=== PATIENT | male | born 1965 | race Caucasian/White ===

== ENCOUNTER 2023-04-24 20:00 | Inpatient (IN) | payer MEDICARE ==
[2023-04-24 20:33] LABS: #Monocytes 0.2 thou/uL (0.11-0.59); %Basophils 0.6 % (0.0-1.0); %Eosinophils 0.6 % (0.0-10.0); %Lymphocytes 10.8 % (21.0-51.0); %Monocytes 4.7 % (0.0-10.0); Hematocrit 35.6 % (42.0-52.0); Hemoglobin 12.2 g/dL (14.0-18.0); Mean Corpuscular HGB CONC 34.3 g/dL (32.0-36.0); Mean Corpuscular Hemoglobin 36.2 pg (27.0-31.0); Mean Corpuscular Volume 105.6 fl (78.0-98.0); Mean Platelet Volume 10.7 fL (7.4-10.4); Platelet Count 54 10x3/uL (130-400); RBC Distribution Width 15.3 % (11.5-14.5); Red Blood Cell (RBC) Count 3.37 mill/uL (4.70-6.10); White Blood Cell (WBC) Count 3.6 10x3/uL (4.8-10.8)
[2023-04-24 20:44] LABS: Bacteria/HPF None Seen HPF (None Seen); Bilirubin Negative (Negative); Blood, Urine Negative (Negative); CAUTI Indications for Culture Alt mental st,lethar; Clarity Clear (Clear); Glucose, Urine (Dipstick) Normal (Negative); Ketone, Urine 20 mg/dL (Negative); Leukocyte Negative Leu/uL (Negative); Nitrite Negative (Negative); Protein, Urine (Dipstick) Negative (Neg-Trace); RBC/HPF 0-3 HPF (0-3); Specific Gravity, Urine 1.015 (1.002-1.036); Squamous Epithelial None Seen HPF (0-3); Urobilinogen Greater than 12 mg/dL (Less than 2); WBC/HPF 0-3 HPF (0-3); pH, Urine 7.5 (5.0-9.0)
[2023-04-24 20:46] LABS: INR-International Normal Ratio 1.4; PTT 33.7 sec (22.9-36.1); Prothrombin Time 18.1 sec (12.0-14.7)
[2023-04-24 20:46] LABS: Urine Culture Reflex No No
[2023-04-24 20:58] LABS: ALT (SGPT) 34 U/L (8-55); AST (SGOT) 49 U/L (5-34); Albumin 3.1 g/dL (3.5-5.0); Alkaline Phosphatase 197 U/L (40-110); Anion Gap 15 mmol/L (10-20); BUN (Urea Nitrogen) 15 mg/dL (8.4-25.7); Bilirubin, Total 5.8 mg/dL (0.2-1.2); Calc. Creatinine Clearance 0 mL/min (70-130); Carbon Dioxide 17 mmol/L (22-29); Chloride 111 mmol/L (98-107); Estimated GFR 106; Globulin 3.4 g/dL (2.4-3.5); Glucose 115 mg/dL (70-105); Lipase 26 U/L (8-78); Potassium 4.2 mmol/L (3.5-5.1); Protein, Total 6.5 g/dL (6.0-8.3); Sodium 139 mmol/L (136-145)
[2023-04-24] MEDS ORDERED: Lactulose 10 GM/15 ML Oral Solution PR SCH (23:00)
[2023-04-25] MEDS: cefTRIAXone\\ROCEPHIN 1 GM in Sodium Chloride 0.9% 100 ML IVPB SCH ×2 (00:40→21:47)
[2023-04-25 05:00] LABS: #Monocytes 0.3 thou/uL (0.11-0.59); #Neutrophils 4.7 thou/uL (1.40-6.50); %Basophils 0.6 % (0.0-1.0); %Eosinophils 0.2 % (0.0-10.0); %Lymphocytes 6.8 % (21.0-51.0); %Monocytes 4.8 % (0.0-10.0); %Neutrophils 87.4 % (42.0-75.0); Hematocrit 34.3 % (42.0-52.0); Hemoglobin 11.6 g/dL (14.0-18.0); Mean Corpuscular HGB CONC 33.8 g/dL (32.0-36.0); Mean Corpuscular Hemoglobin 35.5 pg (27.0-31.0); Mean Corpuscular Volume 104.9 fl (78.0-98.0); Mean Platelet Volume 10.9 fL (7.4-10.4); RBC Distribution Width 15.2 % (11.5-14.5); Red Blood Cell (RBC) Count 3.27 mill/uL (4.70-6.10); White Blood Cell (WBC) Count 5.4 10x3/uL (4.8-10.8)
[2023-04-25 05:09] LABS: Platelet Count 53 10x3/uL (130-400)
[2023-04-25 05:28] LABS: Anion Gap 17 mmol/L (10-20); BUN (Urea Nitrogen) 17 mg/dL (8.4-25.7); Calc. Creatinine Clearance 105 mL/min (70-130); Calcium 7.8 mg/dL (7.8-10.44); Carbon Dioxide 17 mmol/L (22-29); Chloride 110 mmol/L (98-107); Estimated GFR 105; Glucose 154 mg/dL (70-105); Potassium 4.6 mmol/L (3.5-5.1); Sodium 139 mmol/L (136-145)
[2023-04-25] MEDS: Furosemide 40 MG/4 ML VIAL SLOW IVP SCH ×2 (06:17→14:26)
[2023-04-25] MEDS ORDERED: FLU VACC QS2023-24(6MOS UP)/PF 60 MCG/0.5 ML SYRINGE IM ONE (09:00)
[2023-04-25] MEDS ORDERED: Lidocaine 1% PF 5 ML VIAL ONE (16:00)
[2023-04-25] MEDS ORDERED: Sodium Bicarbonate 2.5 MEQ/5 ML VIAL ONE (16:00)
[2023-04-25] MEDS ORDERED: Lidocaine 1% w/Epinephrine 1:100K 20 ML VIAL ONE (16:36)
[2023-04-25] MEDS: Albumin 25% 25 GM/100 ML BOT IVPB SCH (18:30)
[2023-04-25 19:21] LABS: RBC Count-Automated (BF) 23 /cu.mm; WBC/Nucleated-Auto (BF) 12 /cu.mm
[2023-04-25 19:22] LABS: BF Color Yellow; Body Fluid Source Ascites Body Fluid; Clarity Clear (Clear); Tube # EDTA
[2023-04-25 19:29] LABS: Cell Count Non Hematic 81 %; Lymphocytes 19 %
[2023-04-26 00:40] LABS: #Monocytes 0.6 thou/uL (0.11-0.59); #Neutrophils 6.9 thou/uL (1.40-6.50); %Basophils 0.3 % (0.0-1.0); %Lymphocytes 4.5 % (21.0-51.0); %Monocytes 7.2 % (0.0-10.0); %Neutrophils 87.7 % (42.0-75.0); Hematocrit 35.3 % (42.0-52.0); Hemoglobin 11.9 g/dL (14.0-18.0); Mean Corpuscular HGB CONC 33.7 g/dL (32.0-36.0); Mean Corpuscular Hemoglobin 36.3 pg (27.0-31.0); Mean Corpuscular Volume 107.6 fl (78.0-98.0); RBC Distribution Width 15.8 % (11.5-14.5); Red Blood Cell (RBC) Count 3.28 mill/uL (4.70-6.10); White Blood Cell (WBC) Count 7.8 10x3/uL (4.8-10.8)
[2023-04-26 00:42] LABS: Platelet Count 50 10x3/uL (130-400)
[2023-04-26] MEDS ORDERED: Octreotide Acetate 100 MCG/ML VIAL SLOW IVP SCH (00:45)
[2023-04-26] MEDS: Ondansetron PF 4 MG/2 ML Vial IVP PRN (01:13)
[2023-04-26] MEDS: Albumin 25% 25 GM/100 ML BOT IVPB SCH ×3 (01:21→16:06)
[2023-04-26 04:44] LABS: #Monocytes 0.4 thou/uL (0.11-0.59); %Basophils 0.3 % (0.0-1.0); %Eosinophils 0.5 % (0.0-10.0); %Lymphocytes 5.1 % (21.0-51.0); %Monocytes 7.7 % (0.0-10.0); %Neutrophils 86.2 % (42.0-75.0); Hematocrit 32.6 % (42.0-52.0); Hemoglobin 11.1 g/dL (14.0-18.0); Mean Corpuscular Hemoglobin 35.8 pg (27.0-31.0); Mean Corpuscular Volume 105.2 fl (78.0-98.0); Mean Platelet Volume 10.5 fL (7.4-10.4); RBC Distribution Width 15.4 % (11.5-14.5); White Blood Cell (WBC) Count 5.7 10x3/uL (4.8-10.8)
[2023-04-26 05:13] LABS: Anion Gap 17 mmol/L (10-20); BUN (Urea Nitrogen) 19 mg/dL (8.4-25.7); Calc. Creatinine Clearance 92 mL/min (70-130); Calcium 8.4 mg/dL (7.8-10.44); Carbon Dioxide 18 mmol/L (22-29); Chloride 108 mmol/L (98-107); Estimated GFR 101; Glucose 139 mg/dL (70-105); Iron 114 ug/dL (65-175); Iron Binding Capacity, Total 258 mcg/dL (261-462); Potassium 3.3 mmol/L (3.5-5.1); Sodium 140 mmol/L (136-145)
[2023-04-26 05:33] LABS: Platelet Count 52 10x3/uL (130-400)
[2023-04-26 05:37] LABS: HBCM Index 0.12 S/CO (0-0.79); HBSAg Index 0.38 S/CO (0-0.99); Hep A IgM AB Non-Reactive S/CO (NonReactive); Hep B Surf Ag Non-Reactive S/CO (NonReactive); Hep C IgG Ab Non-Reactive S/CO (NonReactive); Hep C Index 0.15 S/CO (0-0.79); Hepatitis B Core IgM Abs Non-Reactive S/CO (NonReactive)
[2023-04-26] MEDS: Furosemide 40 MG/4 ML VIAL SLOW IVP SCH (06:03)
[2023-04-26] MEDS: Pantoprazole 40 MG VIAL IVP SCH ×2 (08:44→20:12)
[2023-04-26] MEDS ORDERED: Potassium Chloride 10 MEQ in Premix 1 BAG IVPB SCH (10:00)
[2023-04-26 13:01] LABS: Lactic Acid 2.5 mmol/L (0.5-2.2)
[2023-04-26 14:05] LABS: ANA Symphony (Qualitative) Negative (Negative); ANA Symphony (Quantitative) 0.4 Ratio (< 0.7 Negative); EliA Vaculitis New Method **** NEW METHOD ****; Mitochondrial Ab 2.1 U/mL (<4 Negative)
[2023-04-26] MEDS: Acetaminophen 650 MG/20.3 ML UDCUP PO PRN (23:02)
[2023-04-26] MEDS: cefTRIAXone\\ROCEPHIN 1 GM in Sodium Chloride 0.9% 100 ML IVPB SCH (23:03)
[2023-04-27] MEDS: Ondansetron ODT 4 MG TAB PO PRN ×2 (04:53→20:46)
[2023-04-27 05:03] LABS: #Eosinphils 0.4 thou/uL (0.0-0.7); #Monocytes 0.4 thou/uL (0.11-0.59); #Neutrophils 2.7 thou/uL (1.40-6.50); %Basophils 0.5 % (0.0-1.0); %Eosinophils 8.6 % (0.0-10.0); %Lymphocytes 14.7 % (21.0-51.0); %Monocytes 10.5 % (0.0-10.0); %Neutrophils 65.2 % (42.0-75.0); Hematocrit 31.7 % (42.0-52.0); Hemoglobin 10.2 g/dL (14.0-18.0); Mean Corpuscular HGB CONC 32.2 g/dL (32.0-36.0); Mean Platelet Volume 11.6 fL (7.4-10.4); RBC Distribution Width 15.5 % (11.5-14.5); Red Blood Cell (RBC) Count 2.83 mill/uL (4.70-6.10); White Blood Cell (WBC) Count 4.1 10x3/uL (4.8-10.8)
[2023-04-27 05:11] LABS: Anion Gap 14 mmol/L (10-20); BUN (Urea Nitrogen) 19 mg/dL (8.4-25.7); Calc. Creatinine Clearance 109 mL/min (70-130); Calcium 8.1 mg/dL (7.8-10.44); Carbon Dioxide 21 mmol/L (22-29); Chloride 109 mmol/L (98-107); Estimated GFR 106; Glucose 86 mg/dL (70-105); Potassium 3.6 mmol/L (3.5-5.1); Sodium 140 mmol/L (136-145)
[2023-04-27 05:18] LABS: Platelet Count 41 10x3/uL (130-400)
[2023-04-27 05:45] LABS: Anisocytosis SLIGHT = 6-15 cells HPF (0-5); CellaVision Operator ID lab.abc; Large Platelets 0.9 % (0-5); Macrocytosis SLIGHT = 6-15 cells HPF (0-5); Platelet Adequacy Comment Platelets Decreased; Polychromasia SLIGHT = 2-3 cells HPF (0-2); Smudge Cells 4.7 %
[2023-04-27] MEDS: Spironolactone 100 MG TAB PO SCH (08:46)
[2023-04-27] MEDS: Pantoprazole 40 MG VIAL IVP SCH ×2 (08:47→20:23)
[2023-04-27] MEDS ORDERED: Furosemide 40 MG/4 ML VIAL SLOW IVP SCH (09:00)
[2023-04-27] MEDS ORDERED: Furosemide 40 MG TAB PO SCH (09:00)
[2023-04-27] MEDS: Acetaminophen 650 MG/20.3 ML UDCUP PO PRN (11:07)
[2023-04-27] MEDS: Ondansetron PF 4 MG/2 ML Vial IVP PRN (12:46)
[2023-04-27] MEDS: cefTRIAXone\\ROCEPHIN 1 GM in Sodium Chloride 0.9% 100 ML IVPB SCH (23:13)
[2023-04-28] MEDS: Acetaminophen 650 MG/20.3 ML UDCUP PO PRN (00:32)
[2023-04-28 05:38] LABS: #Eosinphils 0.1 thou/uL (0.0-0.7); #Monocytes 0.6 thou/uL (0.11-0.59); #Neutrophils 4.4 thou/uL (1.40-6.50); %Basophils 0.7 % (0.0-1.0); %Eosinophils 1.1 % (0.0-10.0); %Lymphocytes 10.9 % (21.0-51.0); %Monocytes 10.2 % (0.0-10.0); %Neutrophils 76.7 % (42.0-75.0); Hematocrit 33.8 % (42.0-52.0); Hemoglobin 11.4 g/dL (14.0-18.0); Mean Corpuscular HGB CONC 33.7 g/dL (32.0-36.0); Mean Corpuscular Hemoglobin 36.1 pg (27.0-31.0); Mean Platelet Volume 11.6 fL (7.4-10.4); RBC Distribution Width 15.1 % (11.5-14.5); Red Blood Cell (RBC) Count 3.16 mill/uL (4.70-6.10); White Blood Cell (WBC) Count 5.7 10x3/uL (4.8-10.8)
[2023-04-28 06:08] LABS: Anion Gap 14 mmol/L (10-20); BUN (Urea Nitrogen) 19 mg/dL (8.4-25.7); Calc. Creatinine Clearance 101 mL/min (70-130); Calcium 8.2 mg/dL (7.8-10.44); Carbon Dioxide 25 mmol/L (22-29); Chloride 102 mmol/L (98-107); Estimated GFR 104; Glucose 122 mg/dL (70-105); Potassium 3.1 mmol/L (3.5-5.1); Sodium 138 mmol/L (136-145)
[2023-04-28 06:39] LABS: Platelet Count 46 10x3/uL (130-400)
[2023-04-28] MEDS: Pantoprazole 40 MG VIAL IVP SCH ×2 (08:35→20:49)
[2023-04-28] MEDS ORDERED: Potassium Chloride 20 MEQ TAB PO SCH (09:15)
[2023-04-28] MEDS ORDERED: PROPOFOL 20 ML ONE (10:36)
[2023-04-28] MEDS ORDERED: Lidocaine 2% PF 5 ML VIAL ONE (10:38)
[2023-04-28] MEDS ORDERED: PROPOFOL 0 ML ONE (10:40)
[2023-04-28] MEDS ORDERED: Lidocaine 1% PF 5 ML VIAL ONE (10:50)
[2023-04-28] MEDS ORDERED: Ondansetron HCl/PF 4 MG/2 ML Vial IVP PRN (11:12)
[2023-04-28] MEDS ORDERED: Promethazine HCl 25 MG/ML VIAL IM PRN (11:12)
[2023-04-28] MEDS: Spironolactone 100 MG TAB PO SCH (13:42)
[2023-04-28] MEDS: Furosemide 40 MG TAB PO SCH (13:43)
[2023-04-28] MEDS ORDERED: Apixaban 5 MG TAB PO SCH (21:00)
[2023-04-28] MEDS: Nadolol 40 MG TAB PO SCH (21:13)
[2023-04-28] MEDS: cefTRIAXone\\ROCEPHIN 1 GM in Sodium Chloride 0.9% 100 ML IVPB SCH (22:30)
[2023-04-29 05:03] LABS: #Eosinphils 0.2 thou/uL (0.0-0.7); #Monocytes 0.5 thou/uL (0.11-0.59); %Basophils 0.5 % (0.0-1.0); %Eosinophils 4.1 % (0.0-10.0); %Lymphocytes 14.7 % (21.0-51.0); %Monocytes 9.1 % (0.0-10.0); %Neutrophils 71.1 % (42.0-75.0); Hematocrit 33.6 % (42.0-52.0); Hemoglobin 11.7 g/dL (14.0-18.0); Mean Corpuscular HGB CONC 34.8 g/dL (32.0-36.0); Mean Corpuscular Hemoglobin 36.6 pg (27.0-31.0); Mean Platelet Volume 11.1 fL (7.4-10.4); RBC Distribution Width 14.6 % (11.5-14.5); White Blood Cell (WBC) Count 5.6 10x3/uL (4.8-10.8)
[2023-04-29 05:12] LABS: Platelet Count 68 10x3/uL (130-400)
[2023-04-29 06:15] LABS: Anion Gap 12 mmol/L (10-20); BUN (Urea Nitrogen) 12 mg/dL (8.4-25.7); Calc. Creatinine Clearance 91 mL/min (70-130); Calcium 8.1 mg/dL (7.8-10.44); Carbon Dioxide 26 mmol/L (22-29); Chloride 102 mmol/L (98-107); Estimated GFR 107; Glucose 109 mg/dL (70-105); Potassium 3.5 mmol/L (3.5-5.1); Sodium 136 mmol/L (136-145)
[2023-04-29] MEDS: Pantoprazole 40 MG VIAL IVP SCH ×2 (09:51→20:02)
[2023-04-29] MEDS: Spironolactone 100 MG TAB PO SCH (09:51)
[2023-04-29] MEDS: Furosemide 40 MG TAB PO SCH (09:51)
[2023-04-29] MEDS ORDERED: Sodium Bicarbonate 2.5 MEQ/5 ML VIAL ONE (10:04)
[2023-04-29] MEDS ORDERED: Lidocaine 1% PF 5 ML VIAL ONE (10:04)
[2023-04-29] MEDS: Albumin 25% 25 GM/100 ML BOT IVPB SCH ×3 (13:27→23:24)
[2023-04-29] MEDS: Nadolol 40 MG TAB PO SCH (20:02)
[2023-04-29] MEDS: cefTRIAXone\\ROCEPHIN 1 GM in Sodium Chloride 0.9% 100 ML IVPB SCH (23:24)
[2023-04-30 04:43] LABS: #Basophils 0.1 thou/uL (0.0-0.2); #Eosinphils 0.4 thou/uL (0.0-0.7); #Monocytes 0.6 thou/uL (0.11-0.59); #Neutrophils 4.3 thou/uL (1.40-6.50); %Basophils 0.8 % (0.0-1.0); %Eosinophils 5.7 % (0.0-10.0); %Lymphocytes 12.8 % (21.0-51.0); %Monocytes 9.8 % (0.0-10.0); %Neutrophils 70.4 % (42.0-75.0); Mean Corpuscular HGB CONC 34.4 g/dL (32.0-36.0); Mean Corpuscular Hemoglobin 35.9 pg (27.0-31.0); Mean Corpuscular Volume 104.6 fl (78.0-98.0); Mean Platelet Volume 11.3 fL (7.4-10.4); RBC Distribution Width 14.7 % (11.5-14.5); Red Blood Cell (RBC) Count 3.06 mill/uL (4.70-6.10); White Blood Cell (WBC) Count 6.1 10x3/uL (4.8-10.8)
[2023-04-30 05:02] LABS: Anion Gap 14 mmol/L (10-20); BUN (Urea Nitrogen) 13 mg/dL (8.4-25.7); Calc. Creatinine Clearance 81 mL/min (70-130); Calcium 8.4 mg/dL (7.8-10.44); Carbon Dioxide 24 mmol/L (22-29); Chloride 102 mmol/L (98-107); Estimated GFR 104; Glucose 88 mg/dL (70-105); Potassium 3.1 mmol/L (3.5-5.1); Sodium 137 mmol/L (136-145)
[2023-04-30 05:45] LABS: Platelet Count 64 10x3/uL (130-400)
[2023-04-30] MEDS: Albumin 25% 25 GM/100 ML BOT IVPB SCH (06:00)
[2023-04-30] MEDS: Furosemide 40 MG TAB PO SCH (08:58)
[2023-04-30] MEDS: Spironolactone 100 MG TAB PO SCH (08:59)
[2023-04-30] MEDS ORDERED: Potassium Chloride 20 MEQ TAB PO SCH (09:00)
[2023-04-30 16:21] VITALS: BMI 17.4
[2023-04-30] MEDS: Nadolol 40 MG TAB PO SCH (20:23)
[2023-04-30] MEDS: Rifaximin 200 MG TAB PO SCH (20:24)
[2023-04-30] MEDS: cefTRIAXone\\ROCEPHIN 1 GM in Sodium Chloride 0.9% 100 ML IVPB SCH (23:20)
[2023-05-01 05:06] LABS: #Basophils 0.1 thou/uL (0.0-0.2); #Eosinphils 0.3 thou/uL (0.0-0.7); #Monocytes 0.8 thou/uL (0.11-0.59); #Neutrophils 5.4 thou/uL (1.40-6.50); %Basophils 0.7 % (0.0-1.0); %Eosinophils 4.4 % (0.0-10.0); %Lymphocytes 9.9 % (21.0-51.0); %Monocytes 10.4 % (0.0-10.0); %Neutrophils 73.8 % (42.0-75.0); Hematocrit 33.3 % (42.0-52.0); Hemoglobin 11.5 g/dL (14.0-18.0); Mean Corpuscular HGB CONC 34.5 g/dL (32.0-36.0); Mean Corpuscular Hemoglobin 36.1 pg (27.0-31.0); Mean Corpuscular Volume 104.4 fl (78.0-98.0); Mean Platelet Volume 11.1 fL (7.4-10.4); RBC Distribution Width 14.7 % (11.5-14.5); Red Blood Cell (RBC) Count 3.19 mill/uL (4.70-6.10); White Blood Cell (WBC) Count 7.3 10x3/uL (4.8-10.8)
[2023-05-01 05:09] LABS: Platelet Count 65 10x3/uL (130-400)
[2023-05-01 05:24] LABS: Anion Gap 12 mmol/L (10-20); BUN (Urea Nitrogen) 13 mg/dL (8.4-25.7); Calc. Creatinine Clearance 78 mL/min (70-130); Calcium 8.6 mg/dL (7.8-10.44); Carbon Dioxide 26 mmol/L (22-29); Chloride 101 mmol/L (98-107); Estimated GFR 103; Glucose 100 mg/dL (70-105); Potassium 3.4 mmol/L (3.5-5.1); Sodium 136 mmol/L (136-145)
[2023-05-01] MEDS ORDERED: Potassium Bicarbonate/Cit Ac 20 MEQ TAB PO SCH (08:30)
[2023-05-01] MEDS: Furosemide 40 MG TAB PO SCH ×2 (08:47→14:57)
[2023-05-01] MEDS: Rifaximin 200 MG TAB PO SCH (08:47)
[2023-05-01] MEDS: Spironolactone 100 MG TAB PO SCH (08:47)
[2023-05-01 15:11] VITALS: BP 98/60; TEMP 98.5
== END 2023-05-01 17:20 | disposition home or self-care (01) | DRG 441 ==
LOC: EDBD 20:00 → ERS 20:00 → 2NO 21:49
PROVIDERS: ADMIT Student in an Organized Health Care Education/Training Program; ATTEND Hospitalist
PROC: 0W9G3ZZ Drainage of Peritoneal Cavity, Percutaneous Approach (ICD-10-PCS; 2023-04-25)
PROC: 30233J1 Transfusion of Nonautologous Serum Albumin into Peripheral Vein, Percutaneous Approach (ICD-10-PCS; 2023-04-25)
PROC: 06L38CZ Occlusion of Esophageal Vein with Extraluminal Device, Via Natural or Artificial Opening Endoscopic (ICD-10-PCS; 2023-04-28)
PROC: 0W9G3ZZ Drainage of Peritoneal Cavity, Percutaneous Approach (ICD-10-PCS; principal; 2023-04-29)
DX: K75.81 Nonalcoholic steatohepatitis (NASH) (principal); I85.11 Secondary esophageal varices with bleeding; C18.9 Malignant neoplasm of colon, unspecified; D68.9 Coagulation defect, unspecified; R18.8 Other ascites; K76.6 Portal hypertension; E87.20 Acidosis, unspecified; K50.90 Crohn's disease, unspecified, without complications; K76.82 Hepatic encephalopathy; I50.9 Heart failure, unspecified; K31.89 Other diseases of stomach and duodenum; D69.6 Thrombocytopenia, unspecified; Z79.899 Other long term (current) drug therapy; Z86.718 Personal history of other venous thrombosis and embolism; Z91.041 Radiographic dye allergy status; Z90.49 Acquired absence of other specified parts of digestive tract; Z98.890 Other specified postprocedural states
CPT/HCPCS: 36415; 49083; 51701; 70450; 71045; 74018; 74176; 76705; 80048; 80053; 80074; 81001; 82042; 82105; 82140; 82390; 82728; 83516; 83540; 83550; 83605; 83690; 84157; 85025; 85060; 85610; 85730; 86015; 86038; 86140; 86225; 87070; 87205; 88112; 88305; 89051; 93005; 93306; 94760; C9113; J0696; J1940; J2001; J2354; J2405; J2704; J3480; J3490; P9047; Q0162

== ENCOUNTER 2023-05-08 11:10 | Inpatient (IN) | payer MEDICARE ==
[2023-05-08 11:44] LABS: #Basophils 0.1 thou/uL (0.0-0.2); #Eosinphils 0.1 thou/uL (0.0-0.7); #Monocytes 0.8 thou/uL (0.11-0.59); %Basophils 0.5 % (0.0-1.0); %Eosinophils 0.8 % (0.0-10.0); %Lymphocytes 6.7 % (21.0-51.0); %Monocytes 6.5 % (0.0-10.0); %Neutrophils 85.1 % (42.0-75.0); Hematocrit 42.3 % (42.0-52.0); Hemoglobin 14.9 g/dL (14.0-18.0); Mean Corpuscular HGB CONC 35.2 g/dL (32.0-36.0); Platelet Count 121 10x3/uL (130-400); RBC Distribution Width 14.8 % (11.5-14.5); Red Blood Cell (RBC) Count 4.03 mill/uL (4.70-6.10); White Blood Cell (WBC) Count 11.8 10x3/uL (4.8-10.8)
[2023-05-08 12:10] LABS: ALT (SGPT) 47 U/L (8-55); AST (SGOT) 59 U/L (5-34); Albumin 4.4 g/dL (3.5-5.0); Alkaline Phosphatase 185 U/L (40-110); Anion Gap 19 mmol/L (10-20); BUN (Urea Nitrogen) 25 mg/dL (8.4-25.7); Bilirubin, Total 5.2 mg/dL (0.2-1.2); Calc. Creatinine Clearance 0 mL/min (70-130); Calcium 10.2 mg/dL (7.8-10.44); Carbon Dioxide 23 mmol/L (22-29); Chloride 97 mmol/L (98-107); Estimated GFR 64; Glucose 136 mg/dL (70-105); Protein, Total 8.4 g/dL (6.0-8.3); Sodium 133 mmol/L (136-145)
[2023-05-08 12:14] LABS: Troponin I Less than 0.010 ng/mL (< 0.028)
[2023-05-08 12:16] LABS: Potassium 6.3 mmol/L (3.5-5.1)
[2023-05-08] MEDS ORDERED: Haloperidol Lactate 5 MG/ML VIAL ONE (12:28)
[2023-05-08] MEDS ORDERED: Furosemide 100 MG/10 ML VIAL ONE (12:46)
[2023-05-08] MEDS ORDERED: Calcium Chloride 1 GM/10 ML Abboject SYRINGE ONE (12:47)
[2023-05-08] MEDS ORDERED: Insulin Regular 300 UNITS/3 ML VIAL ONE (12:47)
[2023-05-08] MEDS ORDERED: Dextrose 10% in Water 250 ML IVPB SCH (13:15)
[2023-05-08 13:29] LABS: Bacteria/HPF None Seen HPF (None Seen); Bilirubin Negative (Negative); Blood, Urine Negative (Negative); CAUTI Indications for Culture Alt mental st,lethar; Clarity Clear (Clear); Glucose, Urine (Dipstick) Normal (Negative); Ketone, Urine Negative (Negative); Leukocyte Negative Leu/uL (Negative); Nitrite Negative (Negative); Protein, Urine (Dipstick) Negative (Neg-Trace); RBC/HPF 0-3 HPF (0-3); Specific Gravity, Urine 1.017 (1.002-1.036); Squamous Epithelial None Seen HPF (0-3); WBC/HPF 0-3 HPF (0-3)
[2023-05-08 13:31] LABS: Urine Culture Reflex No No
[2023-05-08] MEDS ORDERED: Senokot S 8.6-50 MG TAB PO PRN (14:23)
[2023-05-08] MEDS ORDERED: Acetaminophen 650 MG Suppository PR PRN (14:23)
[2023-05-08] MEDS ORDERED: Guaifenesin DM 100-10/5 ML UDCUP PO PRN (14:23)
[2023-05-08] MEDS ORDERED: Ondansetron ODT 4 MG TAB PO PRN (14:23)
[2023-05-08 14:43] LABS: Anion Gap 20 mmol/L (10-20); BUN (Urea Nitrogen) 26 mg/dL (8.4-25.7); Calc. Creatinine Clearance 0 mL/min (70-130); Calcium 11.7 mg/dL (7.8-10.44); Carbon Dioxide 20 mmol/L (22-29); Chloride 99 mmol/L (98-107); Estimated GFR 70; Glucose 171 mg/dL (70-105); Potassium 4.9 mmol/L (3.5-5.1); Sodium 134 mmol/L (136-145)
[2023-05-08] MEDS ORDERED: Furosemide 40 MG TAB PO SCH (14:45)
[2023-05-08] MEDS ORDERED: FLU VACC QS2023-24(6MOS UP)/PF 60 MCG/0.5 ML SYRINGE IM ONE (15:45)
[2023-05-08] MEDS ORDERED: Sodium Bicarbonate 2.5 MEQ/5 ML VIAL ONE (15:47)
[2023-05-08] MEDS ORDERED: Lidocaine 1% PF 5 ML VIAL ONE (15:48)
[2023-05-08] MEDS: cefTRIAXone\\ROCEPHIN 2 GM in Sodium Chloride 0.9% 100 ML IVPB SCH (16:53)
[2023-05-08] MEDS: Albumin 25% 25 GM/100 ML BOT IVPB SCH ×2 (18:47→23:01)
[2023-05-08] MEDS: Sodium Chloride 0.9% 1,000 ML IV SCH (18:47)
[2023-05-08] MEDS: Rifaximin 200 MG TAB PO SCH (20:33)
[2023-05-08] MEDS ORDERED: Nadolol 40 MG TAB PO SCH (21:00)
[2023-05-08] MEDS ORDERED: Ondansetron PF 4 MG/2 ML Vial IVP PRN (23:37)
[2023-05-09] MEDS: Ondansetron PF 4 MG/2 ML Vial IVP PRN (00:20)
[2023-05-09] MEDS: Albumin 25% 25 GM/100 ML BOT IVPB SCH ×2 (05:14→11:22)
[2023-05-09 06:33] LABS: #Monocytes 0.8 thou/uL (0.11-0.59); %Basophils 0.3 % (0.0-1.0); %Lymphocytes 3.6 % (21.0-51.0); %Monocytes 7.2 % (0.0-10.0); %Neutrophils 88.5 % (42.0-75.0); Hematocrit 36.6 % (42.0-52.0); Hemoglobin 12.6 g/dL (14.0-18.0); Mean Corpuscular HGB CONC 34.4 g/dL (32.0-36.0); Mean Corpuscular Volume 107.3 fl (78.0-98.0); Mean Platelet Volume 11.5 fL (7.4-10.4); RBC Distribution Width 14.8 % (11.5-14.5); Red Blood Cell (RBC) Count 3.41 mill/uL (4.70-6.10); White Blood Cell (WBC) Count 11.3 10x3/uL (4.8-10.8)
[2023-05-09 06:34] LABS: Platelet Count 54 10x3/uL (130-400)
[2023-05-09 06:55] LABS: Anion Gap 22 mmol/L (10-20); BUN (Urea Nitrogen) 33 mg/dL (8.4-25.7); Calc. Creatinine Clearance 43 mL/min (70-130); Calcium 10.8 mg/dL (7.8-10.44); Carbon Dioxide 17 mmol/L (22-29); Chloride 103 mmol/L (98-107); Estimated GFR 58; Glucose 150 mg/dL (70-105); Potassium 5.3 mmol/L (3.5-5.1); Sodium 137 mmol/L (136-145)
[2023-05-09] MEDS: Rifaximin 200 MG TAB PO SCH ×2 (08:11→21:53)
[2023-05-09] MEDS: Pantoprazole 40 MG VIAL IVP SCH (08:11)
[2023-05-09] MEDS ORDERED: Furosemide 40 MG TAB PO SCH (09:00)
[2023-05-09 13:03] VITALS: BMI 21.7
[2023-05-09] MEDS: cefTRIAXone\\ROCEPHIN 2 GM in Sodium Chloride 0.9% 100 ML IVPB SCH (16:12)
[2023-05-09] MEDS: Sodium Chloride 0.9% 1,000 ML IV SCH (16:13)
[2023-05-10] MEDS: Acetaminophen 325 MG TAB PO PRN ×2 (03:27→15:06)
[2023-05-10] MEDS: Sodium Chloride 0.9% 1,000 ML IV SCH (09:38)
[2023-05-10] MEDS: Rifaximin 200 MG TAB PO SCH ×2 (09:38→20:25)
[2023-05-10] MEDS: Pantoprazole 40 MG VIAL IVP SCH (09:38)
[2023-05-10] MEDS: cefTRIAXone\\ROCEPHIN 2 GM in Sodium Chloride 0.9% 100 ML IVPB SCH (15:06)
[2023-05-10 16:50] LABS: #Basophils 0.1 thou/uL (0.0-0.2); #Eosinphils 0.2 thou/uL (0.0-0.7); #Monocytes 0.8 thou/uL (0.11-0.59); #Neutrophils 6.1 thou/uL (1.40-6.50); %Basophils 0.7 % (0.0-1.0); %Lymphocytes 6.3 % (21.0-51.0); %Monocytes 10.4 % (0.0-10.0); %Neutrophils 78.9 % (42.0-75.0); Hematocrit 32.4 % (42.0-52.0); Hemoglobin 10.7 g/dL (14.0-18.0); Mean Corpuscular Hemoglobin 36.8 pg (27.0-31.0); Mean Corpuscular Volume 111.3 fl (78.0-98.0); Mean Platelet Volume 10.8 fL (7.4-10.4); RBC Distribution Width 15.2 % (11.5-14.5); Red Blood Cell (RBC) Count 2.91 mill/uL (4.70-6.10); White Blood Cell (WBC) Count 7.7 10x3/uL (4.8-10.8)
[2023-05-10 17:11] LABS: Anion Gap 15 mmol/L (10-20); BUN (Urea Nitrogen) 32 mg/dL (8.4-25.7); Calc. Creatinine Clearance 55 mL/min (70-130); Calcium 9.4 mg/dL (7.8-10.44); Carbon Dioxide 21 mmol/L (22-29); Chloride 107 mmol/L (98-107); Estimated GFR 79; Glucose 143 mg/dL (70-105); Sodium 139 mmol/L (136-145)
[2023-05-10 17:17] LABS: Platelet Count 44 10x3/uL (130-400)
[2023-05-10] MEDS ORDERED: Mineral Oil ENEMA PR SCH (17:30)
[2023-05-10 18:07] LABS: CellaVision Operator ID LAB.KB; Macrocytosis SLIGHT = 6-15 cells HPF (0-5); Ovalocytes SLIGHT = 2-5 cells HPF (0-1); Platelet Adequacy Comment Platelets Decreased
[2023-05-11 05:01] LABS: #Eosinphils 0.1 thou/uL (0.0-0.7); #Monocytes 0.6 thou/uL (0.11-0.59); #Neutrophils 4.1 thou/uL (1.40-6.50); %Basophils 0.7 % (0.0-1.0); %Eosinophils 1.3 % (0.0-10.0); %Lymphocytes 12.4 % (21.0-51.0); %Monocytes 10.8 % (0.0-10.0); %Neutrophils 74.4 % (42.0-75.0); Hematocrit 30.7 % (42.0-52.0); Hemoglobin 10.2 g/dL (14.0-18.0); Mean Corpuscular HGB CONC 33.2 g/dL (32.0-36.0); Mean Corpuscular Hemoglobin 36.2 pg (27.0-31.0); Mean Corpuscular Volume 108.9 fl (78.0-98.0); Mean Platelet Volume 10.7 fL (7.4-10.4); RBC Distribution Width 14.8 % (11.5-14.5); Red Blood Cell (RBC) Count 2.82 mill/uL (4.70-6.10); White Blood Cell (WBC) Count 5.5 10x3/uL (4.8-10.8)
[2023-05-11 05:05] LABS: Platelet Count 44 10x3/uL (130-400)
[2023-05-11 05:34] LABS: Anion Gap 10 mmol/L (10-20); BUN (Urea Nitrogen) 27 mg/dL (8.4-25.7); Calc. Creatinine Clearance 66 mL/min (70-130); Calcium 8.9 mg/dL (7.8-10.44); Carbon Dioxide 26 mmol/L (22-29); Chloride 108 mmol/L (98-107); Estimated GFR 98; Glucose 98 mg/dL (70-105); Sodium 140 mmol/L (136-145)
[2023-05-11] MEDS: Sodium Chloride 0.9% 1,000 ML IV SCH (09:17)
[2023-05-11] MEDS: Rifaximin 200 MG TAB PO SCH ×2 (09:18→21:35)
[2023-05-11] MEDS: Pantoprazole 40 MG VIAL IVP SCH (09:18)
[2023-05-11 09:22] LABS: INR-International Normal Ratio 1.7; Prothrombin Time 20.9 sec (12.0-14.7)
[2023-05-11] MEDS ORDERED: Fleet Saline Enema 133 ML BOT PR SCH (11:45)
[2023-05-11] MEDS: cefTRIAXone\\ROCEPHIN 2 GM in Sodium Chloride 0.9% 100 ML IVPB SCH (16:59)
[2023-05-12] MEDS: Sodium Chloride 0.9% 1,000 ML IV SCH (02:34)
[2023-05-12 05:18] LABS: #Eosinphils 0.1 thou/uL (0.0-0.7); #Monocytes 0.5 thou/uL (0.11-0.59); #Neutrophils 3.1 thou/uL (1.40-6.50); %Eosinophils 1.7 % (0.0-10.0); %Lymphocytes 11.7 % (21.0-51.0); %Monocytes 12.2 % (0.0-10.0); %Neutrophils 72.9 % (42.0-75.0); Hematocrit 31.5 % (42.0-52.0); Hemoglobin 10.5 g/dL (14.0-18.0); Mean Corpuscular HGB CONC 33.3 g/dL (32.0-36.0); Mean Corpuscular Hemoglobin 36.5 pg (27.0-31.0); Mean Corpuscular Volume 109.4 fl (78.0-98.0); Mean Platelet Volume 11.2 fL (7.4-10.4); RBC Distribution Width 14.7 % (11.5-14.5); Red Blood Cell (RBC) Count 2.88 mill/uL (4.70-6.10); White Blood Cell (WBC) Count 4.2 10x3/uL (4.8-10.8)
[2023-05-12 05:42] LABS: Anion Gap 13 mmol/L (10-20); BUN (Urea Nitrogen) 19 mg/dL (8.4-25.7); Calc. Creatinine Clearance 79 mL/min (70-130); Calcium 8.5 mg/dL (7.8-10.44); Carbon Dioxide 24 mmol/L (22-29); Chloride 105 mmol/L (98-107); Estimated GFR 105; Glucose 113 mg/dL (70-105); Potassium 4.1 mmol/L (3.5-5.1); Sodium 138 mmol/L (136-145)
[2023-05-12 05:46] LABS: Platelet Count 48 10x3/uL (130-400)
[2023-05-12] MEDS: Pantoprazole 40 MG VIAL IVP SCH (09:27)
[2023-05-12] MEDS: Rifaximin 200 MG TAB PO SCH ×2 (09:27→20:58)
[2023-05-12] MEDS: Acetaminophen 325 MG TAB PO PRN (13:22)
[2023-05-12] MEDS: cefTRIAXone\\ROCEPHIN 2 GM in Sodium Chloride 0.9% 100 ML IVPB SCH (17:56)
[2023-05-12] MEDS: Calcium Carbonate 500 MG ChewTAB PO PRN (21:42)
[2023-05-12] MEDS: Ondansetron PF 4 MG/2 ML Vial IVP PRN (21:42)
[2023-05-13 07:04] LABS: #Eosinphils 0.1 thou/uL (0.0-0.7); #Monocytes 0.6 thou/uL (0.11-0.59); #Neutrophils 4.1 thou/uL (1.40-6.50); %Basophils 0.7 % (0.0-1.0); %Eosinophils 0.9 % (0.0-10.0); %Lymphocytes 10.1 % (21.0-51.0); %Monocytes 11.9 % (0.0-10.0); Hematocrit 29.9 % (42.0-52.0); Hemoglobin 10.5 g/dL (14.0-18.0); Mean Corpuscular HGB CONC 35.1 g/dL (32.0-36.0); Mean Corpuscular Hemoglobin 37.2 pg (27.0-31.0); Mean Platelet Volume 10.6 fL (7.4-10.4); RBC Distribution Width 14.7 % (11.5-14.5); Red Blood Cell (RBC) Count 2.82 mill/uL (4.70-6.10); White Blood Cell (WBC) Count 5.4 10x3/uL (4.8-10.8)
[2023-05-13 07:09] LABS: Platelet Count 53 10x3/uL (130-400)
[2023-05-13 07:26] LABS: Anion Gap 10 mmol/L (10-20); BUN (Urea Nitrogen) 15 mg/dL (8.4-25.7); Calc. Creatinine Clearance 92 mL/min (70-130); Calcium 8.7 mg/dL (7.8-10.44); Carbon Dioxide 25 mmol/L (22-29); Chloride 102 mmol/L (98-107); Estimated GFR 110; Glucose 96 mg/dL (70-105); Potassium 4.1 mmol/L (3.5-5.1); Sodium 133 mmol/L (136-145)
[2023-05-13] MEDS: Pantoprazole 40 MG VIAL IVP SCH (09:02)
[2023-05-13] MEDS: Rifaximin 200 MG TAB PO SCH ×2 (09:02→20:30)
[2023-05-13] MEDS: Calcium Carbonate 500 MG ChewTAB PO PRN (20:28)
[2023-05-14] MEDS: Rifaximin 200 MG TAB PO SCH (09:01)
[2023-05-14] MEDS: Pantoprazole 40 MG VIAL IVP SCH (09:01)
[2023-05-14 11:59] VITALS: TEMP 98.1
[2023-05-14] MEDS ORDERED: Loratadine/Pseudoephedrine 10/240 mg Tablet PO SCH (15:30)
[2023-05-14] MEDS: Calcium Carbonate 500 MG ChewTAB PO PRN (17:31)
[2023-05-14 19:24] VITALS: BP 119/77
[2023-05-14] MEDS: Acetaminophen 325 MG TAB PO PRN (20:25)
== END 2023-05-14 20:33 | DRG 441 ==
LOC: ERS 11:10 → IMCU/EMU 14:52 → T4-A 05-12 20:20
PROVIDERS: ADMIT Emergency Medicine; ATTEND Family Medicine
PROC: 0W9G3ZZ Drainage of Peritoneal Cavity, Percutaneous Approach (ICD-10-PCS; principal; 2023-05-08)
PROC: 30233J1 Transfusion of Nonautologous Serum Albumin into Peripheral Vein, Percutaneous Approach (ICD-10-PCS; 2023-05-08)
DX: K76.82 Hepatic encephalopathy (principal); G93.41 Metabolic encephalopathy; K76.6 Portal hypertension; N17.9 Acute kidney failure, unspecified; R64 Cachexia; I50.9 Heart failure, unspecified; E87.5 Hyperkalemia; K70.31 Alcoholic cirrhosis of liver with ascites; D69.6 Thrombocytopenia, unspecified; K59.09 Other constipation; Z68.21 Body mass index [BMI] 21.0-21.9, adult; Z90.49 Acquired absence of other specified parts of digestive tract; Z86.718 Personal history of other venous thrombosis and embolism; Z79.899 Other long term (current) drug therapy; Z91.041 Radiographic dye allergy status
CPT/HCPCS: 36415; 36416; 49083; 51702; 70450; 71045; 74018; 74176; 74230; 80048; 81001; 82140; 84484; 85025; 85610; 87040; 87070; 87205; 93005; 96372; 96374; 96375; C9113; J0696; J1630; J1815; J1940; J2405; J3490; J7050; P9047

== ENCOUNTER 2023-05-17 23:16 | Observation (INO) | payer MEDICARE ==
[2023-05-18 00:18] LABS: #Monocytes 0.3 thou/uL (0.11-0.59); #Neutrophils 2.7 thou/uL (1.40-6.50); %Basophils 0.8 % (0.0-1.0); %Eosinophils 0.8 % (0.0-10.0); %Lymphocytes 16.5 % (21.0-51.0); %Monocytes 8.1 % (0.0-10.0); %Neutrophils 73.5 % (42.0-75.0); Hematocrit 31.8 % (42.0-52.0); Mean Corpuscular HGB CONC 34.6 g/dL (32.0-36.0); Mean Corpuscular Hemoglobin 37.2 pg (27.0-31.0); Mean Corpuscular Volume 107.4 fl (78.0-98.0); Mean Platelet Volume 10.9 fL (7.4-10.4); Platelet Count 44 10x3/uL (130-400); RBC Distribution Width 15.6 % (11.5-14.5); Red Blood Cell (RBC) Count 2.96 mill/uL (4.70-6.10); White Blood Cell (WBC) Count 3.7 10x3/uL (4.8-10.8)
[2023-05-18 00:38] LABS: ALT (SGPT) 43 U/L (8-55); AST (SGOT) 48 U/L (5-34); Albumin 3.6 g/dL (3.5-5.0); Alkaline Phosphatase 134 U/L (40-110); Anion Gap 14 mmol/L (10-20); BUN (Urea Nitrogen) 19 mg/dL (8.4-25.7); Calc. Creatinine Clearance 0 mL/min (70-130); Calcium 8.6 mg/dL (7.8-10.44); Carbon Dioxide 20 mmol/L (22-29); Chloride 108 mmol/L (98-107); Estimated GFR 108; Glucose 81 mg/dL (70-105); Lipase 26 U/L (8-78); Protein, Total 6.6 g/dL (6.0-8.3); Sodium 138 mmol/L (136-145)
[2023-05-18 00:39] LABS: Bacteria/HPF None Seen HPF (None Seen); Bilirubin 1+ (Negative); Blood, Urine 1+ (Negative); CAUTI Indications for Culture Alt mental st,lethar; Clarity Clear (Clear); Glucose, Urine (Dipstick) Normal (Negative); Ketone, Urine 40 mg/dL (Negative); Leukocyte Negative Leu/uL (Negative); Mucous/LPF 1+ LPF (<2+); Nitrite Negative (Negative); Protein, Urine (Dipstick) 20 mg/dL (Neg-Trace); Specific Gravity, Urine 1.032 (1.002-1.036); Squamous Epithelial None Seen HPF (0-3); WBC/HPF 0-3 HPF (0-3); pH, Urine 6.5 (5.0-9.0)
[2023-05-18 00:42] LABS: Troponin I Less than 0.010 ng/mL (< 0.028)
[2023-05-18 00:44] LABS: Urine Culture Reflex No No
[2023-05-18] MEDS ORDERED: Acetaminophen 325 MG TAB PO PRN (01:39)
[2023-05-18] MEDS ORDERED: Ondansetron PF 4 MG/2 ML Vial IVP PRN (01:39)
[2023-05-18] MEDS ORDERED: Acetaminophen 650 MG Suppository PR PRN (01:39)
[2023-05-18] MEDS ORDERED: Calcium Carbonate 500 MG ChewTAB PO PRN (01:39)
[2023-05-18] MEDS ORDERED: Ondansetron ODT 4 MG TAB PO PRN (01:39)
[2023-05-18 06:40] LABS: #Monocytes 0.2 thou/uL (0.11-0.59); %Basophils 1.1 % (0.0-1.0); %Lymphocytes 17.2 % (21.0-51.0); %Monocytes 7.1 % (0.0-10.0); %Neutrophils 74.2 % (42.0-75.0); Hematocrit 33.4 % (42.0-52.0); Mean Corpuscular HGB CONC 32.9 g/dL (32.0-36.0); Mean Corpuscular Hemoglobin 37.4 pg (27.0-31.0); RBC Distribution Width 15.9 % (11.5-14.5); Red Blood Cell (RBC) Count 2.94 mill/uL (4.70-6.10); White Blood Cell (WBC) Count 2.7 10x3/uL (4.8-10.8)
[2023-05-18 06:47] LABS: Mean Corpuscular Volume 113.6 fl (78.0-98.0)
[2023-05-18 06:48] LABS: Platelet Count 7 10x3/uL (130-400)
[2023-05-18 07:13] LABS: Anisocytosis SLIGHT = 6-15 cells HPF (0-5); Burr Cells SLIGHT = 2-5 cells HPF (0-1); CellaVision Operator ID LAB.NR; Macrocytosis MODERATE=16-30 cells HPF (0-5); Platelet Adequacy Comment Significant decrease; Polychromasia SLIGHT = 2-3 cells HPF (0-2); Target Cells SLIGHT = 2-5 cells HPF (0-1)
[2023-05-18] MEDS ORDERED: Promethazine HCl 12.5 MG in Sodium Chloride 0.9% 50 ML IVPB PRN (07:53)
[2023-05-18] MEDS ORDERED: Famotidine 20 MG TAB PO SCH (09:00)
[2023-05-18] MEDS ORDERED: Famotidine/PF 20 mg/2ml Vial SLOW IVP SCH (09:00)
[2023-05-18 09:31] LABS: #Monocytes 0.3 thou/uL (0.11-0.59); #Neutrophils 3.2 thou/uL (1.40-6.50); %Basophils 0.8 % (0.0-1.0); %Eosinophils 0.5 % (0.0-10.0); %Lymphocytes 11.8 % (21.0-51.0); %Monocytes 7.3 % (0.0-10.0); %Neutrophils 79.3 % (42.0-75.0); Hemoglobin 11.4 g/dL (14.0-18.0); Mean Corpuscular HGB CONC 34.5 g/dL (32.0-36.0); Mean Corpuscular Hemoglobin 37.5 pg (27.0-31.0); Mean Platelet Volume 11.1 fL (7.4-10.4); RBC Distribution Width 15.8 % (11.5-14.5); Red Blood Cell (RBC) Count 3.04 mill/uL (4.70-6.10)
[2023-05-18 09:59] LABS: Platelet Count 43 10x3/uL (130-400)
[2023-05-18 10:01] LABS: Mean Corpuscular Volume 108.6 fl (78.0-98.0)
[2023-05-18] MEDS: Rifaximin 200 MG TAB PO SCH ×2 (10:17→21:56)
[2023-05-18] MEDS: Lactulose 10 GM/15 ML Oral Solution PR SCH ×3 (10:18→18:33)
[2023-05-18 13:37] LABS: Albumin 3.9 g/dL (3.5-5.0); Calcium 8.8 mg/dL (7.8-10.44); Chloride 109 mmol/L (98-107); Sodium 140 mmol/L (136-145)
[2023-05-18 13:38] LABS: Globulin 3.1 g/dL (2.4-3.5); Glucose 109 mg/dL (70-105)
[2023-05-18 13:39] LABS: Carbon Dioxide 15 mmol/L (22-29)
[2023-05-18 13:40] LABS: Anion Gap 20 mmol/L (10-20); Bilirubin, Total 6.7 mg/dL (0.2-1.2)
[2023-05-18 13:41] LABS: Alkaline Phosphatase 165 U/L (40-110); Calc. Creatinine Clearance 87 mL/min (70-130); Estimated GFR 107
[2023-05-18 13:42] LABS: BUN (Urea Nitrogen) 22 mg/dL (8.4-25.7)
[2023-05-18 13:43] LABS: AST (SGOT) 63 U/L (5-34)
[2023-05-18 13:44] LABS: ALT (SGPT) 50 U/L (8-55)
[2023-05-19 04:05] VITALS: TEMP 97.6
[2023-05-19 04:08] VITALS: BMI 19.1
[2023-05-19 08:06] VITALS: BP 111/72
[2023-05-19] MEDS: Rifaximin 200 MG TAB PO SCH (09:05)
[2023-05-21] MEDS ORDERED: FLU VACC QS2023-24(6MOS UP)/PF 60 MCG/0.5 ML SYRINGE IM ONE (09:00)
== END 2023-05-19 13:05 ==
LOC: ERS 23:16 → T4-B 05-18 01:53
PROVIDERS: ADMIT Student in an Organized Health Care Education/Training Program; ATTEND Internal Medicine
DX: R41.82 Altered mental status, unspecified (principal); K74.60 Unspecified cirrhosis of liver; E72.20 Disorder of urea cycle metabolism, unspecified; K76.6 Portal hypertension; I85.11 Secondary esophageal varices with bleeding; D69.6 Thrombocytopenia, unspecified; D64.9 Anemia, unspecified; K76.82 Hepatic encephalopathy; Z90.49 Acquired absence of other specified parts of digestive tract; Z85.038 Personal history of other malignant neoplasm of large intestine; Z86.718 Personal history of other venous thrombosis and embolism; Z79.01 Long term (current) use of anticoagulants; Z79.899 Other long term (current) drug therapy; Z91.018 Allergy to other foods; Z91.041 Radiographic dye allergy status; Z88.8 Allergy status to other drugs, medicaments and biological substances
CPT/HCPCS: 51701; 71045; 80053 ×2; 81001; 82140; 83690; 84484; 85025 ×3; 93005; 96374; 96375; 96376; 99285; G0378 ×2; 36415; J0780; J2405

== ENCOUNTER 2023-07-12 09:04 | Inpatient (IN) | payer MEDICARE ==
[2023-07-12] MEDS ORDERED: Haloperidol Lactate 5 MG/ML VIAL ONE (09:50)
[2023-07-12 09:56] LABS: #Eosinphils 0.2 thou/uL (0.0-0.7); #Monocytes 0.3 thou/uL (0.11-0.59); #Neutrophils 2.7 thou/uL (1.40-6.50); %Basophils 1.1 % (0.0-1.0); %Eosinophils 4.8 % (0.0-10.0); %Lymphocytes 13.1 % (21.0-51.0); %Monocytes 7.8 % (0.0-10.0); %Neutrophils 72.9 % (42.0-75.0); Hematocrit 35.9 % (42.0-52.0); Hemoglobin 11.9 g/dL (14.0-18.0); Mean Corpuscular HGB CONC 33.1 g/dL (32.0-36.0); Mean Corpuscular Hemoglobin 34.9 pg (27.0-31.0); Mean Corpuscular Volume 105.3 fl (78.0-98.0); Mean Platelet Volume 10.8 fL (7.4-10.4); RBC Distribution Width 14.6 % (11.5-14.5); Red Blood Cell (RBC) Count 3.41 mill/uL (4.70-6.10); White Blood Cell (WBC) Count 3.7 10x3/uL (4.8-10.8)
[2023-07-12 09:58] LABS: Platelet Count 58 10x3/uL (130-400)
[2023-07-12 10:09] LABS: Troponin I Less than 0.010 ng/mL (< 0.028)
[2023-07-12 10:12] LABS: Acetaminophen Less than 10 mcg/mL (10.0-30.0); Alcohol Less than 10.0 mg/dL (Less than 10); Salicylate Less than 8.0 mg/dL (15.0-30.0)
[2023-07-12 10:14] LABS: ALT (SGPT) 19 U/L (8-55); AST (SGOT) 28 U/L (5-34); Albumin 4.2 g/dL (3.5-5.0); Alkaline Phosphatase 180 U/L (40-110); Anion Gap 13 mmol/L (10-20); BUN (Urea Nitrogen) 11 mg/dL (8.4-25.7); Bilirubin, Total 3.5 mg/dL (0.2-1.2); Calc. Creatinine Clearance 0 mL/min (70-130); Calcium 8.4 mg/dL (7.8-10.44); Carbon Dioxide 25 mmol/L (22-29); Chloride 105 mmol/L (98-107); Estimated GFR 101; Globulin 3.2 g/dL (2.4-3.5); Glucose 127 mg/dL (70-105); Protein, Total 7.4 g/dL (6.0-8.3); Sodium 139 mmol/L (136-145)
[2023-07-12 10:24] LABS: Bacteria/HPF None Seen HPF (None Seen); Bilirubin Negative (Negative); Blood, Urine Negative (Negative); CAUTI Indications for Culture Alt mental st,lethar; Clarity Clear (Clear); Glucose, Urine (Dipstick) Normal (Negative); Ketone, Urine Negative (Negative); Leukocyte Negative Leu/uL (Negative); Nitrite Negative (Negative); Protein, Urine (Dipstick) Negative (Neg-Trace); RBC/HPF 0-3 HPF (0-3); Specific Gravity, Urine 1.012 (1.002-1.036); Squamous Epithelial None Seen HPF (0-3); Urobilinogen 3 mg/dL (Less than 2); WBC/HPF 0-3 HPF (0-3); pH, Urine 7.5 (5.0-9.0)
[2023-07-12 10:25] LABS: Amphetamine Not Detected (NotDetected); Barbiturates Screen Not Detected (NotDetected); Benzodiazepine Screen Not Detected (NotDetected); Cocaine Metabolite Screen Not Detected (NotDetected); Methadone Not Detected (NotDetected); Methamphetamine Not Detected (NotDetected); Opiate Screen Not Detected (NotDetected); Oxycodone Screen Not Detected (NotDetected); Phencyclidine (PCP) Not Detected (NotDetected); THC/Cannabinoid Screen Not Detected (NotDetected); Tricyclic Screen Not Detected (NotDetected); Urine Culture Reflex No No
[2023-07-12] MEDS ORDERED: Lactulose 20 GM (30 mL) UDCUP ONE (10:36)
[2023-07-12] MEDS ORDERED: Guaifenesin DM 100-10/5 ML UDCUP PO PRN (10:47)
[2023-07-12] MEDS ORDERED: Ondansetron PF 4 MG/2 ML Vial IVP PRN (10:47)
[2023-07-12] MEDS: Dextrose 5 %-0.45 % NaCl 1,000 ML IV SCH (13:36)
[2023-07-12 13:45] LABS: Lactic Acid 3.7 mmol/L (0.5-2.2)
[2023-07-12] MEDS: Lactulose 10 GM/15 ML Oral Solution PR SCH (15:00)
[2023-07-12 18:45] VITALS: BMI 21.2
[2023-07-12] MEDS ORDERED: Rifaximin 550 MG TAB PO SCH (21:00)
[2023-07-13] MEDS: Rifaximin 200 MG TAB PO SCH (01:20)
[2023-07-13] MEDS: Heparin 5,000 UNITS/ML VIAL SC SCH (01:20)
[2023-07-13 06:29] LABS: #Eosinphils 0.2 thou/uL (0.0-0.7); #Monocytes 0.4 thou/uL (0.11-0.59); #Neutrophils 1.9 thou/uL (1.40-6.50); %Basophils 1.2 % (0.0-1.0); %Lymphocytes 23.4 % (21.0-51.0); %Monocytes 11.2 % (0.0-10.0); %Neutrophils 58.9 % (42.0-75.0); Hematocrit 30.3 % (42.0-52.0); Hemoglobin 10.3 g/dL (14.0-18.0); Mean Corpuscular Hemoglobin 35.2 pg (27.0-31.0); Mean Corpuscular Volume 103.4 fl (78.0-98.0); Mean Platelet Volume 11.1 fL (7.4-10.4); RBC Distribution Width 14.7 % (11.5-14.5); Red Blood Cell (RBC) Count 2.93 mill/uL (4.70-6.10); White Blood Cell (WBC) Count 3.2 10x3/uL (4.8-10.8)
[2023-07-13 06:34] LABS: Platelet Count 55 10x3/uL (130-400)
[2023-07-13 07:01] LABS: ALT (SGPT) 20 U/L (8-55); AST (SGOT) 29 U/L (5-34); Albumin 3.5 g/dL (3.5-5.0); Alkaline Phosphatase 133 U/L (40-110); Anion Gap 10 mmol/L (10-20); BUN (Urea Nitrogen) 11 mg/dL (8.4-25.7); Bilirubin, Total 3.7 mg/dL (0.2-1.2); Calc. Creatinine Clearance 89 mL/min (70-130); Calcium 7.8 mg/dL (7.8-10.44); Carbon Dioxide 22 mmol/L (22-29); Chloride 111 mmol/L (98-107); Estimated GFR 107; Globulin 2.5 g/dL (2.4-3.5); Glucose 110 mg/dL (70-105); Potassium 3.3 mmol/L (3.5-5.1); Sodium 140 mmol/L (136-145)
[2023-07-13] MEDS: Potassium Chloride 20 MEQ TAB PO SCH (12:50)
[2023-07-13] MEDS: Lactulose 20 GM (30 mL) UDCUP PO SCH (12:50)
[2023-07-14] MEDS: Acetaminophen 325 MG TAB PO PRN (03:35)
[2023-07-14 05:59] LABS: #Eosinphils 0.1 thou/uL (0.0-0.7); #Monocytes 0.4 thou/uL (0.11-0.59); #Neutrophils 2.6 thou/uL (1.40-6.50); %Eosinophils 2.1 % (0.0-10.0); %Monocytes 11.5 % (0.0-10.0); %Neutrophils 68.1 % (42.0-75.0); Hematocrit 32.1 % (42.0-52.0); Hemoglobin 10.5 g/dL (14.0-18.0); Mean Corpuscular HGB CONC 32.7 g/dL (32.0-36.0); Mean Corpuscular Hemoglobin 35.6 pg (27.0-31.0); Mean Platelet Volume 11.5 fL (7.4-10.4); RBC Distribution Width 15.1 % (11.5-14.5); Red Blood Cell (RBC) Count 2.95 mill/uL (4.70-6.10); White Blood Cell (WBC) Count 3.8 10x3/uL (4.8-10.8)
[2023-07-14 06:01] LABS: Platelet Count 52 10x3/uL (130-400)
[2023-07-14 06:02] LABS: Mean Corpuscular Volume 108.8 fl (78.0-98.0)
[2023-07-14 06:22] LABS: ALT (SGPT) 23 U/L (8-55); AST (SGOT) 33 U/L (5-34); Albumin 3.5 g/dL (3.5-5.0); Alkaline Phosphatase 134 U/L (40-110); Anion Gap 12 mmol/L (10-20); BUN (Urea Nitrogen) 14 mg/dL (8.4-25.7); Bilirubin, Total 3.2 mg/dL (0.2-1.2); Calc. Creatinine Clearance 82 mL/min (70-130); Calcium 8.5 mg/dL (7.8-10.44); Carbon Dioxide 20 mmol/L (22-29); Chloride 109 mmol/L (98-107); Estimated GFR 104; Globulin 2.9 g/dL (2.4-3.5); Glucose 118 mg/dL (70-105); Protein, Total 6.4 g/dL (6.0-8.3); Sodium 137 mmol/L (136-145)
[2023-07-14] MEDS: Spironolactone 100 MG TAB PO SCH (08:23)
[2023-07-14] MEDS: Calcium Carbonate 500 MG ChewTAB PO PRN (14:51)
[2023-07-15 06:42] LABS: ALT (SGPT) 19 U/L (8-55); AST (SGOT) 23 U/L (5-34); Albumin 3.3 g/dL (3.5-5.0); Alkaline Phosphatase 121 U/L (40-110); Anion Gap 12 mmol/L (10-20); BUN (Urea Nitrogen) 15 mg/dL (8.4-25.7); Calc. Creatinine Clearance 85 mL/min (70-130); Calcium 8.7 mg/dL (7.8-10.44); Carbon Dioxide 18 mmol/L (22-29); Chloride 109 mmol/L (98-107); Estimated GFR 105; Globulin 2.5 g/dL (2.4-3.5); Glucose 87 mg/dL (70-105); Potassium 4.1 mmol/L (3.5-5.1); Protein, Total 5.8 g/dL (6.0-8.3); Sodium 135 mmol/L (136-145)
[2023-07-15 11:59] VITALS: BP 125/69; TEMP 98.3
== END 2023-07-15 12:02 | disposition home or self-care (01) | DRG 442 ==
LOC: ERS 09:04 → T4-A 10:48
PROVIDERS: ADMIT Internal Medicine; ATTEND Internal Medicine
DX: K76.82 Hepatic encephalopathy (principal); R18.8 Other ascites; K74.60 Unspecified cirrhosis of liver; K75.81 Nonalcoholic steatohepatitis (NASH); D64.9 Anemia, unspecified; D69.6 Thrombocytopenia, unspecified; Z86.718 Personal history of other venous thrombosis and embolism; Z88.8 Allergy status to other drugs, medicaments and biological substances; Z91.018 Allergy to other foods; Z79.899 Other long term (current) drug therapy; Z82.49 Family history of ischemic heart disease and other diseases of the circulatory system
CPT/HCPCS: 36415; 51701; 70450; 71045; 80053; 80306; 80307; 81001; 82140; 83605; 84484; 85025; 87040; 87086; 93005; 93970; 96374; J1630; J7042

== ENCOUNTER 2023-07-18 06:38 | Day surgery (SDC) | payer MEDICARE ==
[2023-07-16 14:08] VITALS: BMI 20.2
[2023-07-18] MEDS ORDERED: Benzocaine 20% Spray 60 ML CAN ONE (07:48)
[2023-07-18] MEDS ORDERED: PROPOFOL 40 ML ONE (08:16)
== END 2023-07-18 10:48 | disposition home or self-care (01) ==
LOC: SDC 06:38
PROVIDERS: ATTEND Internal Medicine
PROC: 0DJ08ZZ Inspection of Upper Intestinal Tract, Via Natural or Artificial Opening Endoscopic (ICD-10-PCS; principal; 2023-07-18)
DX: I85.00 Esophageal varices without bleeding (principal); K76.6 Portal hypertension; K31.89 Other diseases of stomach and duodenum; K70.30 Alcoholic cirrhosis of liver without ascites; K50.90 Crohn's disease, unspecified, without complications; K76.82 Hepatic encephalopathy; K21.9 Gastro-esophageal reflux disease without esophagitis; Z85.038 Personal history of other malignant neoplasm of large intestine; Z86.718 Personal history of other venous thrombosis and embolism; Z88.8 Allergy status to other drugs, medicaments and biological substances; Z79.899 Other long term (current) drug therapy
CPT/HCPCS: J2704

== ENCOUNTER 2023-07-20 12:53 | Inpatient (IN) | payer MEDICARE ==
[2023-07-20 14:52] LABS: #Eosinphils 0.1 thou/uL (0.0-0.7); #Monocytes 0.2 thou/uL (0.11-0.59); #Neutrophils 1.7 thou/uL (1.40-6.50); %Basophils 1.2 % (0.0-1.0); %Eosinophils 3.7 % (0.0-10.0); %Lymphocytes 19.4 % (21.0-51.0); %Neutrophils 68.3 % (42.0-75.0); Hematocrit 31.9 % (42.0-52.0); Hemoglobin 10.9 g/dL (14.0-18.0); Mean Corpuscular HGB CONC 34.2 g/dL (32.0-36.0); Mean Corpuscular Hemoglobin 35.9 pg (27.0-31.0); Mean Corpuscular Volume 104.9 fl (78.0-98.0); Mean Platelet Volume 11.5 fL (7.4-10.4); RBC Distribution Width 15.2 % (11.5-14.5); Red Blood Cell (RBC) Count 3.04 mill/uL (4.70-6.10); White Blood Cell (WBC) Count 2.4 10x3/uL (4.8-10.8)
[2023-07-20 14:54] LABS: Platelet Count 39 10x3/uL (130-400)
[2023-07-20 15:02] LABS: SARS-CoV-2 NAA Rapid Test Not Detected (NotDetected)
[2023-07-20 15:17] LABS: Troponin I Less than 0.010 ng/mL (< 0.028)
[2023-07-20] MEDS ORDERED: Lactulose 20 GM (30 mL) UDCUP ONE (16:16)
[2023-07-20 16:35] LABS: ALT (SGPT) 29 U/L (8-55); AST (SGOT) 39 U/L (5-34); Acetaminophen Less than 10 mcg/mL (10.0-30.0); Albumin 3.7 g/dL (3.5-5.0); Alcohol Less than 10.0 mg/dL (Less than 10); Alkaline Phosphatase 133 U/L (40-110); Anion Gap 15 mmol/L (10-20); BUN (Urea Nitrogen) 14 mg/dL (8.4-25.7); Bilirubin, Total 3.9 mg/dL (0.2-1.2); CK (CPK) 53 U/L (30-200); Calc. Creatinine Clearance 0 mL/min (70-130); Calcium 8.2 mg/dL (7.8-10.44); Carbon Dioxide 18 mmol/L (22-29); Chloride 113 mmol/L (98-107); Estimated GFR 105; Glucose 87 mg/dL (70-105); Lipase 36 U/L (8-78); Potassium 3.9 mmol/L (3.5-5.1); Protein, Total 6.7 g/dL (6.0-8.3); Salicylate Less than 8.0 mg/dL (15.0-30.0); Sodium 142 mmol/L (136-145)
[2023-07-20 16:54] LABS: Bacteria/HPF None Seen HPF (None Seen); Bilirubin Negative (Negative); Blood, Urine 1+ (Negative); CAUTI Indications for Culture Alt mental st,lethar; Clarity Clear (Clear); Glucose, Urine (Dipstick) Normal (Negative); Ketone, Urine 10 mg/dL (Negative); Leukocyte Negative Leu/uL (Negative); Nitrite Negative (Negative); Protein, Urine (Dipstick) Negative (Neg-Trace); Specific Gravity, Urine 1.016 (1.002-1.036); Squamous Epithelial None Seen HPF (0-3); Urobilinogen 3 mg/dL (Less than 2); WBC/HPF 0-3 HPF (0-3)
[2023-07-20 16:57] LABS: Urine Culture Reflex No No
[2023-07-20 17:16] LABS: Amphetamine Not Detected (NotDetected); Barbiturates Screen Not Detected (NotDetected); Benzodiazepine Screen Not Detected (NotDetected); Cocaine Metabolite Screen Not Detected (NotDetected); Methadone Not Detected (NotDetected); Methamphetamine Not Detected (NotDetected); Opiate Screen Not Detected (NotDetected); Oxycodone Screen Not Detected (NotDetected); Phencyclidine (PCP) Not Detected (NotDetected); THC/Cannabinoid Screen Not Detected (NotDetected); Tricyclic Screen Not Detected (NotDetected)
[2023-07-20 19:30] LABS: Magnesium 1.8 mg/dL (1.6-2.6)
[2023-07-20] MEDS ORDERED: Magnesium Sulfate 2 GM in Sodium Chloride 0.9% 100 ML IVPB SCH (20:00)
[2023-07-20] MEDS: Magnesium 2 GM/50 ML(in water) 2 GM in Premix 1 BAG IVPB SCH (21:17)
[2023-07-20] MEDS: Nadolol 40 MG TAB PO SCH (21:28)
[2023-07-20] MEDS: Rifaximin 550 MG TAB PO SCH (21:28)
[2023-07-20] MEDS: Lactulose 10 GM/15 ML Oral Solution PR SCH (21:48)
[2023-07-20 23:21] VITALS: BMI 22.5
[2023-07-21] MEDS: Lactulose 10 GM/15 ML Oral Solution PR SCH (00:06)
[2023-07-21] MEDS: diphenhydrAMINE 25 MG CAP PO SCH (00:31)
[2023-07-21] MEDS: Lactulose 20 GM (30 mL) UDCUP PO SCH ×2 (01:57→08:41)
[2023-07-21 05:35] LABS: #Monocytes 0.4 thou/uL (0.11-0.59); #Neutrophils 3.2 thou/uL (1.40-6.50); %Eosinophils 0.2 % (0.0-10.0); %Lymphocytes 9.5 % (21.0-51.0); %Monocytes 10.7 % (0.0-10.0); %Neutrophils 78.4 % (42.0-75.0); Hematocrit 29.3 % (42.0-52.0); Hemoglobin 9.8 g/dL (14.0-18.0); Mean Corpuscular HGB CONC 33.4 g/dL (32.0-36.0); Mean Corpuscular Hemoglobin 35.3 pg (27.0-31.0); Mean Corpuscular Volume 105.4 fl (78.0-98.0); Mean Platelet Volume 10.1 fL (7.4-10.4); Red Blood Cell (RBC) Count 2.78 mill/uL (4.70-6.10); White Blood Cell (WBC) Count 4.1 10x3/uL (4.8-10.8)
[2023-07-21 05:50] LABS: Platelet Count 44 10x3/uL (130-400)
[2023-07-21] MEDS: Calcium Carbonate 500 MG ChewTAB PO SCH (05:50)
[2023-07-21 05:51] LABS: ALT (SGPT) 24 U/L (8-55); AST (SGOT) 38 U/L (5-34); Albumin 3.2 g/dL (3.5-5.0); Alkaline Phosphatase 123 U/L (40-110); Anion Gap 11 mmol/L (10-20); BUN (Urea Nitrogen) 15 mg/dL (8.4-25.7); Bilirubin, Total 4.4 mg/dL (0.2-1.2); Calc. Creatinine Clearance 95 mL/min (70-130); Calcium 8.2 mg/dL (7.8-10.44); Carbon Dioxide 17 mmol/L (22-29); Chloride 114 mmol/L (98-107); Estimated GFR 106; Globulin 2.7 g/dL (2.4-3.5); Glucose 131 mg/dL (70-105); Magnesium 2.1 mg/dL (1.6-2.6); Potassium 3.5 mmol/L (3.5-5.1); Protein, Total 5.9 g/dL (6.0-8.3); Sodium 138 mmol/L (136-145)
[2023-07-21 06:01] LABS: INR-International Normal Ratio 1.9; PTT 40.7 sec (22.9-36.1); Prothrombin Time 21.7 sec (12.0-14.7)
[2023-07-21] MEDS: Acetaminophen 500 MG TAB PO PRN (08:37)
[2023-07-21] MEDS: Furosemide 40 MG TAB PO SCH (08:37)
[2023-07-21] MEDS: Spironolactone 100 MG TAB PO SCH (08:39)
[2023-07-21] MEDS: Ondansetron PF 4 MG/2 ML Vial IVP PRN (08:57)
[2023-07-21] MEDS ORDERED: FLU VACC QS2023-24(6MOS UP)/PF 60 MCG/0.5 ML SYRINGE IM ONE (09:00)
[2023-07-22] MEDS: Promethazine HCl 12.5 MG in Sodium Chloride 0.9% 50 ML IVPB SCH (00:57)
[2023-07-22 07:51] LABS: #Eosinphils 0.2 thou/uL (0.0-0.7); #Monocytes 0.6 thou/uL (0.11-0.59); #Neutrophils 4.4 thou/uL (1.40-6.50); %Basophils 0.5 % (0.0-1.0); %Eosinophils 3.4 % (0.0-10.0); %Lymphocytes 9.7 % (21.0-51.0); %Monocytes 10.4 % (0.0-10.0); %Neutrophils 75.7 % (42.0-75.0); Hematocrit 31.2 % (42.0-52.0); Hemoglobin 10.4 g/dL (14.0-18.0); Mean Corpuscular HGB CONC 33.3 g/dL (32.0-36.0); Mean Corpuscular Hemoglobin 35.1 pg (27.0-31.0); Mean Corpuscular Volume 105.4 fl (78.0-98.0); Mean Platelet Volume 11.1 fL (7.4-10.4); RBC Distribution Width 15.2 % (11.5-14.5); Red Blood Cell (RBC) Count 2.96 mill/uL (4.70-6.10); White Blood Cell (WBC) Count 5.9 10x3/uL (4.8-10.8)
[2023-07-22 07:57] LABS: Platelet Count 52 10x3/uL (130-400)
[2023-07-22 08:17] LABS: INR-International Normal Ratio 1.9; Prothrombin Time 21.6 sec (12.0-14.7)
[2023-07-22 08:31] LABS: ALT (SGPT) 31 U/L (8-55); AST (SGOT) 45 U/L (5-34); Albumin 3.1 g/dL (3.5-5.0); Alkaline Phosphatase 131 U/L (40-110); Anion Gap 11 mmol/L (10-20); BUN (Urea Nitrogen) 12 mg/dL (8.4-25.7); Bilirubin, Total 4.4 mg/dL (0.2-1.2); Calc. Creatinine Clearance 89 mL/min (70-130); Calcium 8.4 mg/dL (7.8-10.44); Carbon Dioxide 23 mmol/L (22-29); Chloride 106 mmol/L (98-107); Estimated GFR 104; Globulin 2.8 g/dL (2.4-3.5); Glucose 102 mg/dL (70-105); Magnesium 1.6 mg/dL (1.6-2.6); Potassium 3.5 mmol/L (3.5-5.1); Protein, Total 5.9 g/dL (6.0-8.3); Sodium 136 mmol/L (136-145)
[2023-07-22] MEDS ORDERED: Sodium Bicarbonate 2.5 MEQ/5 ML SDV ONE (09:41)
[2023-07-22] MEDS ORDERED: Lidocaine 1% PF 5 ML VIAL ONE (09:41)
[2023-07-22] MEDS ORDERED: Lidocaine 1% w/Epinephrine 1:100K 20 ML VIAL ONE (09:51)
[2023-07-22] MEDS: Albumin 25% 25 GM (100 mL) BOT IVPB SCH (11:58)
[2023-07-24] MEDS: Lactulose 10 GM/15 ML Oral Solution PR SCH (06:27)
[2023-07-24 08:33] LABS: #Monocytes 0.5 thou/uL (0.11-0.59); %Basophils 0.6 % (0.0-1.0); %Eosinophils 0.2 % (0.0-10.0); %Lymphocytes 11.3 % (21.0-51.0); %Monocytes 7.2 % (0.0-10.0); %Neutrophils 80.5 % (42.0-75.0); Hematocrit 38.9 % (42.0-52.0); Hemoglobin 13.1 g/dL (14.0-18.0); Mean Corpuscular HGB CONC 33.7 g/dL (32.0-36.0); Mean Platelet Volume 11.3 fL (7.4-10.4); Red Blood Cell (RBC) Count 3.74 mill/uL (4.70-6.10); White Blood Cell (WBC) Count 6.2 10x3/uL (4.8-10.8)
[2023-07-24 08:35] LABS: Platelet Count 70 10x3/uL (130-400)
[2023-07-24 09:15] LABS: ALT (SGPT) 25 U/L (8-55); AST (SGOT) 34 U/L (5-34); Albumin 4.3 g/dL (3.5-5.0); Alkaline Phosphatase 142 U/L (40-110); Anion Gap 16 mmol/L (10-20); BUN (Urea Nitrogen) 16 mg/dL (8.4-25.7); Bilirubin, Total 4.6 mg/dL (0.2-1.2); Calc. Creatinine Clearance 74 mL/min (70-130); Calcium 9.4 mg/dL (7.8-10.44); Carbon Dioxide 22 mmol/L (22-29); Chloride 105 mmol/L (98-107); Estimated GFR 98; Globulin 3.3 g/dL (2.4-3.5); Glucose 136 mg/dL (70-105); Protein, Total 7.6 g/dL (6.0-8.3); Sodium 139 mmol/L (136-145)
[2023-07-25 06:44] LABS: ALT (SGPT) 25 U/L (8-55); AST (SGOT) 32 U/L (5-34); Albumin 3.9 g/dL (3.5-5.0); Alkaline Phosphatase 134 U/L (40-110); Anion Gap 16 mmol/L (10-20); BUN (Urea Nitrogen) 21 mg/dL (8.4-25.7); Bilirubin, Total 4.3 mg/dL (0.2-1.2); Calc. Creatinine Clearance 66 mL/min (70-130); Calcium 9.4 mg/dL (7.8-10.44); Carbon Dioxide 21 mmol/L (22-29); Chloride 107 mmol/L (98-107); Estimated GFR 84; Glucose 116 mg/dL (70-105); Potassium 4.1 mmol/L (3.5-5.1); Protein, Total 6.9 g/dL (6.0-8.3); Sodium 140 mmol/L (136-145)
[2023-07-25 07:55] LABS: #Basophils 0.1 thou/uL (0.0-0.2); #Monocytes 1.5 thou/uL (0.11-0.59); #Neutrophils 6.5 thou/uL (1.40-6.50); %Basophils 0.8 % (0.0-1.0); %Eosinophils 0.3 % (0.0-10.0); %Lymphocytes 11.7 % (21.0-51.0); %Monocytes 16.7 % (0.0-10.0); %Neutrophils 70.2 % (42.0-75.0); Hematocrit 38.1 % (42.0-52.0); Hemoglobin 12.9 g/dL (14.0-18.0); Mean Corpuscular HGB CONC 33.9 g/dL (32.0-36.0); Mean Corpuscular Hemoglobin 34.7 pg (27.0-31.0); Mean Corpuscular Volume 102.4 fl (78.0-98.0); Mean Platelet Volume 11.3 fL (7.4-10.4); RBC Distribution Width 15.2 % (11.5-14.5); Red Blood Cell (RBC) Count 3.72 mill/uL (4.70-6.10); White Blood Cell (WBC) Count 9.2 10x3/uL (4.8-10.8)
[2023-07-25 07:59] LABS: Platelet Count 67 10x3/uL (130-400)
[2023-07-25] MEDS: Spironolactone 100 MG TAB PO SCH (09:00)
[2023-07-26 05:44] LABS: #Basophils 0.1 thou/uL (0.0-0.2); #Eosinphils 0.1 thou/uL (0.0-0.7); #Monocytes 0.6 thou/uL (0.11-0.59); #Neutrophils 3.3 thou/uL (1.40-6.50); %Basophils 1.2 % (0.0-1.0); %Eosinophils 1.4 % (0.0-10.0); %Lymphocytes 20.2 % (21.0-51.0); %Monocytes 12.5 % (0.0-10.0); %Neutrophils 64.5 % (42.0-75.0); Hematocrit 35.1 % (42.0-52.0); Mean Corpuscular HGB CONC 34.2 g/dL (32.0-36.0); Mean Corpuscular Volume 102.3 fl (78.0-98.0); Mean Platelet Volume 11.2 fL (7.4-10.4); RBC Distribution Width 14.9 % (11.5-14.5); Red Blood Cell (RBC) Count 3.43 mill/uL (4.70-6.10)
[2023-07-26 05:45] LABS: Platelet Count 68 10x3/uL (130-400)
[2023-07-26 06:13] LABS: ALT (SGPT) 26 U/L (8-55); AST (SGOT) 31 U/L (5-34); Albumin 3.8 g/dL (3.5-5.0); Alkaline Phosphatase 131 U/L (40-110); Anion Gap 15 mmol/L (10-20); BUN (Urea Nitrogen) 28 mg/dL (8.4-25.7); Bilirubin, Total 4.8 mg/dL (0.2-1.2); Calc. Creatinine Clearance 59 mL/min (70-130); Carbon Dioxide 23 mmol/L (22-29); Chloride 105 mmol/L (98-107); Estimated GFR 75; Globulin 2.9 g/dL (2.4-3.5); Glucose 97 mg/dL (70-105); Potassium 3.9 mmol/L (3.5-5.1); Protein, Total 6.7 g/dL (6.0-8.3); Sodium 139 mmol/L (136-145)
[2023-07-26] MEDS: Spironolactone 100 MG TAB PO SCH (10:49)
[2023-07-27 07:32] LABS: ALT (SGPT) 27 U/L (8-55); AST (SGOT) 36 U/L (5-34); Albumin 3.6 g/dL (3.5-5.0); Alkaline Phosphatase 125 U/L (40-110); Anion Gap 15 mmol/L (10-20); BUN (Urea Nitrogen) 26 mg/dL (8.4-25.7); Calc. Creatinine Clearance 66 mL/min (70-130); Calcium 8.4 mg/dL (7.8-10.44); Carbon Dioxide 23 mmol/L (22-29); Chloride 102 mmol/L (98-107); Estimated GFR 84; Glucose 94 mg/dL (70-105); Potassium 3.9 mmol/L (3.5-5.1); Protein, Total 6.6 g/dL (6.0-8.3); Sodium 136 mmol/L (136-145)
[2023-07-27 08:50] LABS: #Basophils 0.1 thou/uL (0.0-0.2); #Eosinphils 0.3 thou/uL (0.0-0.7); #Monocytes 0.5 thou/uL (0.11-0.59); #Neutrophils 3.1 thou/uL (1.40-6.50); %Basophils 1.2 % (0.0-1.0); %Eosinophils 5.1 % (0.0-10.0); %Lymphocytes 21.5 % (21.0-51.0); %Monocytes 10.4 % (0.0-10.0); %Neutrophils 61.4 % (42.0-75.0); Hematocrit 37.3 % (42.0-52.0); Hemoglobin 12.3 g/dL (14.0-18.0); Mean Corpuscular Hemoglobin 34.5 pg (27.0-31.0); Mean Corpuscular Volume 104.5 fl (78.0-98.0); Mean Platelet Volume 11.4 fL (7.4-10.4); RBC Distribution Width 14.9 % (11.5-14.5); Red Blood Cell (RBC) Count 3.57 mill/uL (4.70-6.10); White Blood Cell (WBC) Count 5.1 10x3/uL (4.8-10.8)
[2023-07-27 08:51] LABS: Platelet Count 73 10x3/uL (130-400)
[2023-07-27 16:27] LABS: RBC Count-Automated (BF) 7564 /cu.mm; WBC/Nucleated-Auto (BF) 87 /cu.mm
[2023-07-27 16:41] LABS: BF Color Yellow; Body Fluid Source Ascites Body Fluid; Clarity Hazy (Clear); Tube # EDTA
[2023-07-27 16:55] LABS: BF Segmented Neutrophils 2 %; Cell Count Non Hematic 59 %; Eosinophils 10 %; Lymphocytes 27 %
[2023-07-27] MEDS: Lidocaine 1% w/Epinephrine 1:100K 20 ML VIAL ONE (19:23)
[2023-07-27 23:45] LABS: Fluid, Protein 1.7 g/dL (Not Available)
[2023-07-28 04:58] LABS: #Basophils 0.1 thou/uL (0.0-0.2); #Eosinphils 0.2 thou/uL (0.0-0.7); #Monocytes 0.7 thou/uL (0.11-0.59); #Neutrophils 4.5 thou/uL (1.40-6.50); %Basophils 0.8 % (0.0-1.0); %Eosinophils 2.4 % (0.0-10.0); %Lymphocytes 16.5 % (21.0-51.0); %Monocytes 10.5 % (0.0-10.0); %Neutrophils 69.6 % (42.0-75.0); Hematocrit 38.4 % (42.0-52.0); Hemoglobin 13.4 g/dL (14.0-18.0); Mean Corpuscular HGB CONC 34.9 g/dL (32.0-36.0); Mean Corpuscular Hemoglobin 34.7 pg (27.0-31.0); Mean Platelet Volume 11.5 fL (7.4-10.4); RBC Distribution Width 14.6 % (11.5-14.5); Red Blood Cell (RBC) Count 3.86 mill/uL (4.70-6.10); White Blood Cell (WBC) Count 6.4 10x3/uL (4.8-10.8)
[2023-07-28 05:05] LABS: Mean Corpuscular Volume 99.5 fl (78.0-98.0); Platelet Count 83 10x3/uL (130-400)
[2023-07-28 05:23] LABS: ALT (SGPT) 33 U/L (8-55); AST (SGOT) 44 U/L (5-34); Albumin 3.9 g/dL (3.5-5.0); Alkaline Phosphatase 154 U/L (40-110); Anion Gap 15 mmol/L (10-20); BUN (Urea Nitrogen) 25 mg/dL (8.4-25.7); Bilirubin, Total 4.9 mg/dL (0.2-1.2); Calc. Creatinine Clearance 61 mL/min (70-130); Carbon Dioxide 22 mmol/L (22-29); Chloride 101 mmol/L (98-107); Estimated GFR 77; Globulin 3.3 g/dL (2.4-3.5); Glucose 108 mg/dL (70-105); Protein, Total 7.2 g/dL (6.0-8.3); Sodium 134 mmol/L (136-145)
[2023-07-28] MEDS: Sodium Chloride 0.9% 1,000 ML IV SCH (12:34)
[2023-07-28] MEDS: Pantoprazole 40 MG VIAL IVP SCH ×2 (12:35→22:14)
[2023-07-28] MEDS: cefTRIAXone\\ROCEPHIN 1 GM in Sodium Chloride 0.9% 100 ML IVPB SCH (12:49)
[2023-07-28] MEDS: Lactulose 20 GM (30 mL) UDCUP PR SCH (14:25)
[2023-07-28] MEDS: Lactulose 10 GM/15 ML Oral Solution PR SCH ×2 (14:25→17:50)
[2023-07-28 20:04] LABS: Hemoglobin 14.9 g/dL (14.0-18.0)
[2023-07-29 05:32] LABS: #Eosinphils 0.1 thou/uL (0.0-0.7); #Monocytes 0.5 thou/uL (0.11-0.59); #Neutrophils 3.3 thou/uL (1.40-6.50); %Basophils 0.8 % (0.0-1.0); %Eosinophils 2.7 % (0.0-10.0); %Monocytes 10.1 % (0.0-10.0); Hematocrit 35.8 % (42.0-52.0); Hemoglobin 12.5 g/dL (14.0-18.0); Mean Corpuscular HGB CONC 34.9 g/dL (32.0-36.0); Mean Corpuscular Hemoglobin 35.3 pg (27.0-31.0); Mean Corpuscular Volume 101.1 fl (78.0-98.0); Mean Platelet Volume 11.5 fL (7.4-10.4); RBC Distribution Width 14.6 % (11.5-14.5); Red Blood Cell (RBC) Count 3.54 mill/uL (4.70-6.10); White Blood Cell (WBC) Count 4.8 10x3/uL (4.8-10.8)
[2023-07-29 05:35] LABS: Platelet Count 58 10x3/uL (130-400)
[2023-07-29 05:47] LABS: ALT (SGPT) 30 U/L (8-55); AST (SGOT) 31 U/L (5-34); Albumin 3.6 g/dL (3.5-5.0); Alkaline Phosphatase 130 U/L (40-110); Anion Gap 12 mmol/L (10-20); BUN (Urea Nitrogen) 30 mg/dL (8.4-25.7); Bilirubin, Total 4.2 mg/dL (0.2-1.2); Calc. Creatinine Clearance 68 mL/min (70-130); Calcium 8.6 mg/dL (7.8-10.44); Carbon Dioxide 24 mmol/L (22-29); Chloride 103 mmol/L (98-107); Estimated GFR 87; Globulin 2.8 g/dL (2.4-3.5); Glucose 97 mg/dL (70-105); Potassium 4.3 mmol/L (3.5-5.1); Protein, Total 6.4 g/dL (6.0-8.3); Sodium 135 mmol/L (136-145)
[2023-07-29 11:35] LABS: Bacteria/HPF None Seen HPF (None Seen); Bilirubin Negative (Negative); Blood, Urine Negative (Negative); CAUTI Indications for Culture Alt mental st,lethar; Clarity Clear (Clear); Glucose, Urine (Dipstick) Normal (Negative); Ketone, Urine 10 mg/dL (Negative); Leukocyte Negative Leu/uL (Negative); Nitrite Negative (Negative); Protein, Urine (Dipstick) 30 mg/dL (Neg-Trace); RBC/HPF 0-3 HPF (0-3); Specific Gravity, Urine 1.033 (1.002-1.036); Squamous Epithelial 0-3 HPF (0-3)
[2023-07-29 11:38] LABS: Urine Culture Reflex No No
[2023-07-29] MEDS: Lactulose 20 GM (30 mL) UDCUP PO SCH (13:18)
[2023-07-30 05:24] LABS: #Eosinphils 0.1 thou/uL (0.0-0.7); #Monocytes 0.6 thou/uL (0.11-0.59); #Neutrophils 3.1 thou/uL (1.40-6.50); %Basophils 0.9 % (0.0-1.0); %Eosinophils 2.4 % (0.0-10.0); %Lymphocytes 17.2 % (21.0-51.0); %Monocytes 12.3 % (0.0-10.0); Hemoglobin 11.3 g/dL (14.0-18.0); Mean Corpuscular HGB CONC 34.2 g/dL (32.0-36.0); Mean Corpuscular Hemoglobin 35.4 pg (27.0-31.0); Mean Corpuscular Volume 103.4 fl (78.0-98.0); Mean Platelet Volume 11.4 fL (7.4-10.4); RBC Distribution Width 14.8 % (11.5-14.5); Red Blood Cell (RBC) Count 3.19 mill/uL (4.70-6.10); White Blood Cell (WBC) Count 4.7 10x3/uL (4.8-10.8)
[2023-07-30 05:40] LABS: Platelet Count 51 10x3/uL (130-400)
[2023-07-30 05:49] LABS: ALT (SGPT) 28 U/L (8-55); AST (SGOT) 40 U/L (5-34); Albumin 3.1 g/dL (3.5-5.0); Alkaline Phosphatase 116 U/L (40-110); Anion Gap 13 mmol/L (10-20); BUN (Urea Nitrogen) 21 mg/dL (8.4-25.7); Bilirubin, Total 2.8 mg/dL (0.2-1.2); Calc. Creatinine Clearance 59 mL/min (70-130); Calcium 8.1 mg/dL (7.8-10.44); Carbon Dioxide 19 mmol/L (22-29); Chloride 106 mmol/L (98-107); Estimated GFR 74; Globulin 2.9 g/dL (2.4-3.5); Glucose 106 mg/dL (70-105); Potassium 4.4 mmol/L (3.5-5.1); Sodium 134 mmol/L (136-145)
[2023-07-31 03:21] LABS: #Monocytes 0.4 thou/uL (0.11-0.59); #Neutrophils 3.2 thou/uL (1.40-6.50); %Basophils 0.5 % (0.0-1.0); %Eosinophils 0.2 % (0.0-10.0); %Lymphocytes 11.4 % (21.0-51.0); %Monocytes 9.9 % (0.0-10.0); %Neutrophils 77.8 % (42.0-75.0); Hematocrit 29.5 % (42.0-52.0); Hemoglobin 10.4 g/dL (14.0-18.0); Mean Corpuscular HGB CONC 35.3 g/dL (32.0-36.0); Mean Corpuscular Hemoglobin 35.5 pg (27.0-31.0); Mean Corpuscular Volume 100.7 fl (78.0-98.0); Mean Platelet Volume 10.3 fL (7.4-10.4); RBC Distribution Width 14.9 % (11.5-14.5); Red Blood Cell (RBC) Count 2.93 mill/uL (4.70-6.10); White Blood Cell (WBC) Count 4.1 10x3/uL (4.8-10.8)
[2023-07-31 03:23] LABS: Platelet Count 34 10x3/uL (130-400)
[2023-07-31 04:00] LABS: ALT (SGPT) 27 U/L (8-55); AST (SGOT) 29 U/L (5-34); Albumin 2.9 g/dL (3.5-5.0); Alkaline Phosphatase 110 U/L (40-110); Anion Gap 8 mmol/L (10-20); BUN (Urea Nitrogen) 16 mg/dL (8.4-25.7); Bilirubin, Total 2.4 mg/dL (0.2-1.2); Calc. Creatinine Clearance 82 mL/min (70-130); Carbon Dioxide 25 mmol/L (22-29); Chloride 105 mmol/L (98-107); Estimated GFR 101; Globulin 2.5 g/dL (2.4-3.5); Glucose 136 mg/dL (70-105); Potassium 3.5 mmol/L (3.5-5.1); Protein, Total 5.4 g/dL (6.0-8.3); Sodium 134 mmol/L (136-145)
[2023-07-31 08:19] VITALS: TEMP 97.7
[2023-07-31] MEDS: Rifaximin 550 MG TAB PO SCH (08:43)
[2023-07-31] MEDS: Spironolactone 100 MG TAB PO SCH (08:44)
[2023-07-31 12:48] VITALS: BP 107/73
== END 2023-07-31 16:34 | DRG 442 ==
LOC: ERS 12:53 → MSONC 17:42
PROVIDERS: ADMIT Internal Medicine; ATTEND Internal Medicine
PROC: 0W9G3ZZ Drainage of Peritoneal Cavity, Percutaneous Approach (ICD-10-PCS; principal; 2023-07-22)
PROC: 30233J1 Transfusion of Nonautologous Serum Albumin into Peripheral Vein, Percutaneous Approach (ICD-10-PCS; 2023-07-22)
PROC: 0W9G3ZX Drainage of Peritoneal Cavity, Percutaneous Approach, Diagnostic (ICD-10-PCS; 2023-07-27)
DX: K76.82 Hepatic encephalopathy (principal); C18.9 Malignant neoplasm of colon, unspecified; D61.818 Other pancytopenia; R18.8 Other ascites; I85.10 Secondary esophageal varices without bleeding; I85.00 Esophageal varices without bleeding; K76.6 Portal hypertension; K50.90 Crohn's disease, unspecified, without complications; K75.81 Nonalcoholic steatohepatitis (NASH); Z98.890 Other specified postprocedural states; R62.7 Adult failure to thrive; Z79.899 Other long term (current) drug therapy; Z88.8 Allergy status to other drugs, medicaments and biological substances; Z91.018 Allergy to other foods; Z90.49 Acquired absence of other specified parts of digestive tract; Z82.49 Family history of ischemic heart disease and other diseases of the circulatory system; Z86.718 Personal history of other venous thrombosis and embolism; Z68.22 Body mass index [BMI] 22.0-22.9, adult; Z91.148 Patient's other noncompliance with medication regimen for other reason; Z11.52 Encounter for screening for COVID-19; K31.89 Other diseases of stomach and duodenum; K70.30 Alcoholic cirrhosis of liver without ascites; K21.9 Gastro-esophageal reflux disease without esophagitis; Z85.038 Personal history of other malignant neoplasm of large intestine
CPT/HCPCS: 36415; 49083; 71045; 74018; 76705; 80053; 80306; 80307; 81001; 82140; 82550; 82945; 83615; 83690; 83735; 84157; 84443; 84484; 85025; 85060; 85610; 85730; 87040; 87070; 87205; 89051; 93005; 93010; 96360; C9113; J0696; J2405; J2550; J2704; J3475; J3490; J7050; P9047

== ENCOUNTER 2023-08-07 10:37 | Inpatient (IN) | payer MEDICARE ==
[2023-08-07 11:51] LABS: #Eosinphils 0.1 thou/uL (0.0-0.7); #Monocytes 0.4 thou/uL (0.11-0.59); #Neutrophils 3.7 thou/uL (1.40-6.50); %Basophils 0.8 % (0.0-1.0); %Eosinophils 1.4 % (0.0-10.0); %Monocytes 8.8 % (0.0-10.0); %Neutrophils 73.8 % (42.0-75.0); Hemoglobin 13.8 g/dL (14.0-18.0); Mean Corpuscular HGB CONC 34.5 g/dL (32.0-36.0); Mean Corpuscular Hemoglobin 35.6 pg (27.0-31.0); Mean Corpuscular Volume 103.1 fl (78.0-98.0); Mean Platelet Volume 11.3 fL (7.4-10.4); RBC Distribution Width 15.8 % (11.5-14.5); Red Blood Cell (RBC) Count 3.88 mill/uL (4.70-6.10)
[2023-08-07 12:00] LABS: Platelet Count 84 10x3/uL (130-400)
[2023-08-07 12:04] LABS: Albumin 4.4 g/dL (3.5-5.0); Anion Gap 14 mmol/L (10-20); BUN (Urea Nitrogen) 19 mg/dL (8.4-25.7); Bilirubin, Total 3.9 mg/dL (0.2-1.2); Calc. Creatinine Clearance 0 mL/min (70-130); Carbon Dioxide 22 mmol/L (22-29); Chloride 107 mmol/L (98-107); Estimated GFR 85; Globulin 4.1 g/dL (2.4-3.5); Glucose 112 mg/dL (70-105); Potassium 4.9 mmol/L (3.5-5.1); Protein, Total 8.5 g/dL (6.0-8.3); Sodium 138 mmol/L (136-145)
[2023-08-07 12:05] LABS: ALT (SGPT) 41 U/L (8-55); AST (SGOT) 43 U/L (5-34); Alkaline Phosphatase 164 U/L (40-110)
[2023-08-07] MEDS ORDERED: Haloperidol Lactate 5 MG/ML VIAL ONE (12:11)
[2023-08-07 12:15] LABS: Troponin I Less than 0.010 ng/mL (< 0.028)
[2023-08-07 12:16] LABS: Acetaminophen Less than 10 mcg/mL (10.0-30.0); Alcohol Less than 10.0 mg/dL (Less than 10); Lipase 35 U/L (8-78); Salicylate Less than 8.0 mg/dL (15.0-30.0)
[2023-08-07 12:29] LABS: Bacteria/HPF None Seen HPF (None Seen); Bilirubin Negative (Negative); Blood, Urine Negative (Negative); CAUTI Indications for Culture Alt mental st,lethar; Clarity Clear (Clear); Glucose, Urine (Dipstick) Normal (Negative); Ketone, Urine Negative (Negative); Leukocyte Negative Leu/uL (Negative); Nitrite Negative (Negative); Protein, Urine (Dipstick) 20 mg/dL (Neg-Trace); RBC/HPF 0-3 HPF (0-3); Specific Gravity, Urine 1.031 (1.002-1.036); Squamous Epithelial None Seen HPF (0-3); Urobilinogen 3 mg/dL (Less than 2); WBC/HPF 0-3 HPF (0-3); pH, Urine 6.5 (5.0-9.0)
[2023-08-07 12:32] LABS: Amphetamine Not Detected (NotDetected); Barbiturates Screen Not Detected (NotDetected); Benzodiazepine Screen Not Detected (NotDetected); Cocaine Metabolite Screen Not Detected (NotDetected); Methadone Not Detected (NotDetected); Methamphetamine Not Detected (NotDetected); Opiate Screen Not Detected (NotDetected); Oxycodone Screen Not Detected (NotDetected); Phencyclidine (PCP) Not Detected (NotDetected); THC/Cannabinoid Screen Not Detected (NotDetected); Tricyclic Screen Not Detected (NotDetected)
[2023-08-07 12:35] LABS: Urine Culture Reflex No No
[2023-08-07 14:31] LABS: Lactic Acid 2.1 mmol/L (0.5-2.2)
[2023-08-07] MEDS ORDERED: Acetaminophen 325 MG TAB PO PRN (17:16)
[2023-08-07] MEDS ORDERED: Ondansetron PF 4 MG/2 ML Vial IVP PRN (17:16)
[2023-08-07] MEDS ORDERED: Acetaminophen 650 MG Suppository PR PRN (17:16)
[2023-08-07 20:27] VITALS: BMI 19.3
[2023-08-07] MEDS: Lactulose 20 GM (30 mL) UDCUP PR SCH (21:02)
[2023-08-07] MEDS: Lactulose 20 GM (30 mL) UDCUP PO SCH (21:14)
[2023-08-07] MEDS: Rifaximin 550 MG TAB PO SCH (21:14)
[2023-08-07 21:51] LABS: Magnesium 2.1 mg/dL (1.6-2.6)
[2023-08-08 00:46] LABS: Lactic Acid 2.9 mmol/L (0.5-2.2)
[2023-08-08] MEDS ORDERED: Dextrose 5% in Water 1,000 ML IV PRN (03:53)
[2023-08-08] MEDS ORDERED: Glucagon 1 MG/ML KIT IM PRN (03:53)
[2023-08-08] MEDS ORDERED: Dextrose 50% Abboject 50 ML SYRINGE SLOW IVP PRN (03:53)
[2023-08-08] MEDS: Sodium Chloride 0.9% 1,000 ML IV SCH (03:56)
[2023-08-08] MEDS: Sodium Chloride 0.9% 500 ML IV SCH ×2 (03:56→04:38)
[2023-08-08] MEDS: Lactulose 20 GM (30 mL) UDCUP PR SCH (03:56)
[2023-08-08] MEDS ORDERED: Lactulose 20 GM (30 mL) UDCUP PR PRN (04:03)
[2023-08-08] MEDS: Lactulose 10 GM/15 ML Oral Solution PR SCH (04:43)
[2023-08-08 05:14] LABS: #Basophils 0.1 thou/uL (0.0-0.2); #Eosinphils 0.2 thou/uL (0.0-0.7); #Monocytes 0.5 thou/uL (0.11-0.59); #Neutrophils 2.2 thou/uL (1.40-6.50); %Basophils 1.3 % (0.0-1.0); %Eosinophils 6.3 % (0.0-10.0); %Lymphocytes 20.6 % (21.0-51.0); %Monocytes 12.2 % (0.0-10.0); %Neutrophils 59.3 % (42.0-75.0); Hematocrit 34.9 % (42.0-52.0); Hemoglobin 11.5 g/dL (14.0-18.0); Mean Corpuscular Hemoglobin 35.1 pg (27.0-31.0); Mean Platelet Volume 12.3 fL (7.4-10.4); RBC Distribution Width 15.7 % (11.5-14.5); Red Blood Cell (RBC) Count 3.28 mill/uL (4.70-6.10); White Blood Cell (WBC) Count 3.8 10x3/uL (4.8-10.8)
[2023-08-08 05:17] LABS: Platelet Count 59 10x3/uL (130-400)
[2023-08-08 05:19] LABS: Mean Corpuscular Volume 106.4 fl (78.0-98.0)
[2023-08-08 05:55] LABS: ALT (SGPT) 30 U/L (8-55); AST (SGOT) 33 U/L (5-34); Albumin 3.3 g/dL (3.5-5.0); Alkaline Phosphatase 110 U/L (40-110); Anion Gap 18 mmol/L (10-20); BUN (Urea Nitrogen) 19 mg/dL (8.4-25.7); Bilirubin, Total 3.3 mg/dL (0.2-1.2); Calc. Creatinine Clearance 73 mL/min (70-130); Calcium 8.8 mg/dL (7.8-10.44); Carbon Dioxide 14 mmol/L (22-29); Chloride 111 mmol/L (98-107); Estimated GFR 103; Glucose 76 mg/dL (70-105); Protein, Total 6.3 g/dL (6.0-8.3); Sodium 138 mmol/L (136-145)
[2023-08-08 08:12] LABS: Lactic Acid 2.5 mmol/L (0.5-2.2)
[2023-08-08] MEDS ORDERED: Spironolactone 100 MG TAB PO SCH (09:00)
[2023-08-08] MEDS ORDERED: Furosemide 40 MG TAB PO SCH (09:00)
[2023-08-08] MEDS: Lactulose 10 GM/15 ML Oral Solution PR PRN (22:01)
[2023-08-09 04:59] LABS: #Basophils 0.1 thou/uL (0.0-0.2); #Eosinphils 0.1 thou/uL (0.0-0.7); #Monocytes 0.4 thou/uL (0.11-0.59); #Neutrophils 2.9 thou/uL (1.40-6.50); %Basophils 1.2 % (0.0-1.0); %Eosinophils 2.6 % (0.0-10.0); %Lymphocytes 18.1 % (21.0-51.0); %Monocytes 9.6 % (0.0-10.0); Hematocrit 32.4 % (42.0-52.0); Hemoglobin 11.1 g/dL (14.0-18.0); Mean Corpuscular HGB CONC 34.3 g/dL (32.0-36.0); Mean Corpuscular Volume 102.2 fl (78.0-98.0); Mean Platelet Volume 10.9 fL (7.4-10.4); RBC Distribution Width 15.4 % (11.5-14.5); Red Blood Cell (RBC) Count 3.17 mill/uL (4.70-6.10); White Blood Cell (WBC) Count 4.3 10x3/uL (4.8-10.8)
[2023-08-09 05:08] LABS: Platelet Count 62 10x3/uL (130-400)
[2023-08-09 05:29] LABS: ALT (SGPT) 30 U/L (8-55); AST (SGOT) 29 U/L (5-34); Albumin 3.2 g/dL (3.5-5.0); Alkaline Phosphatase 103 U/L (40-110); Anion Gap 13 mmol/L (10-20); BUN (Urea Nitrogen) 17 mg/dL (8.4-25.7); Bilirubin, Total 2.8 mg/dL (0.2-1.2); Calc. Creatinine Clearance 74 mL/min (70-130); Calcium 8.6 mg/dL (7.8-10.44); Carbon Dioxide 19 mmol/L (22-29); Chloride 109 mmol/L (98-107); Estimated GFR 103; Glucose 90 mg/dL (70-105); Potassium 4.5 mmol/L (3.5-5.1); Protein, Total 6.2 g/dL (6.0-8.3); Sodium 136 mmol/L (136-145)
[2023-08-09] MEDS: Lactulose 10 GM/15 ML Oral Solution PR SCH (10:44)
[2023-08-10 06:00] LABS: ALT (SGPT) 32 U/L (8-55); AST (SGOT) 38 U/L (5-34); Albumin 3.4 g/dL (3.5-5.0); Alkaline Phosphatase 111 U/L (40-110); Anion Gap 17 mmol/L (10-20); BUN (Urea Nitrogen) 21 mg/dL (8.4-25.7); Bilirubin, Total 4.3 mg/dL (0.2-1.2); Calc. Creatinine Clearance 68 mL/min (70-130); Calcium 8.9 mg/dL (7.8-10.44); Carbon Dioxide 14 mmol/L (22-29); Chloride 109 mmol/L (98-107); Estimated GFR 100; Globulin 3.1 g/dL (2.4-3.5); Glucose 94 mg/dL (70-105); Potassium 4.9 mmol/L (3.5-5.1); Protein, Total 6.5 g/dL (6.0-8.3); Sodium 135 mmol/L (136-145)
[2023-08-10 06:27] LABS: #Basophils 0.1 thou/uL (0.0-0.2); #Eosinphils 0.1 thou/uL (0.0-0.7); #Monocytes 0.9 thou/uL (0.11-0.59); #Neutrophils 3.2 thou/uL (1.40-6.50); %Eosinophils 1.8 % (0.0-10.0); %Lymphocytes 19.3 % (21.0-51.0); %Monocytes 16.5 % (0.0-10.0); %Neutrophils 61.2 % (42.0-75.0); Hematocrit 37.3 % (42.0-52.0); Hemoglobin 12.7 g/dL (14.0-18.0); Mean Corpuscular Hemoglobin 35.5 pg (27.0-31.0); Mean Corpuscular Volume 104.2 fl (78.0-98.0); Mean Platelet Volume 10.3 fL (7.4-10.4); RBC Distribution Width 15.8 % (11.5-14.5); Red Blood Cell (RBC) Count 3.58 mill/uL (4.70-6.10); White Blood Cell (WBC) Count 5.1 10x3/uL (4.8-10.8)
[2023-08-10 06:28] LABS: Platelet Count 52 10x3/uL (130-400)
[2023-08-10] MEDS ORDERED: FLU VACC QS2023-24(6MOS UP)/PF 60 MCG/0.5 ML SYRINGE IM ONE (20:30)
[2023-08-10] MEDS: Ondansetron ODT 4 MG TAB PO PRN (22:52)
[2023-08-11 05:49] LABS: #Eosinphils 0.1 thou/uL (0.0-0.7); #Monocytes 0.4 thou/uL (0.11-0.59); #Neutrophils 3.2 thou/uL (1.40-6.50); %Basophils 0.9 % (0.0-1.0); %Eosinophils 1.1 % (0.0-10.0); %Lymphocytes 14.8 % (21.0-51.0); %Monocytes 9.9 % (0.0-10.0); %Neutrophils 72.6 % (42.0-75.0); Hematocrit 36.3 % (42.0-52.0); Hemoglobin 12.5 g/dL (14.0-18.0); Mean Corpuscular HGB CONC 34.4 g/dL (32.0-36.0); Mean Corpuscular Volume 104.6 fl (78.0-98.0); Mean Platelet Volume 11.9 fL (7.4-10.4); RBC Distribution Width 15.8 % (11.5-14.5); Red Blood Cell (RBC) Count 3.47 mill/uL (4.70-6.10); White Blood Cell (WBC) Count 4.5 10x3/uL (4.8-10.8)
[2023-08-11 05:50] LABS: Platelet Count 32 10x3/uL (130-400)
[2023-08-11 06:02] LABS: Anion Gap 15 mmol/L (10-20); BUN (Urea Nitrogen) 18 mg/dL (8.4-25.7); Calc. Creatinine Clearance 67 mL/min (70-130); Carbon Dioxide 19 mmol/L (22-29); Chloride 106 mmol/L (98-107); Estimated GFR 100; Glucose 104 mg/dL (70-105); Potassium 4.6 mmol/L (3.5-5.1); Sodium 135 mmol/L (136-145)
[2023-08-11 16:19] VITALS: BP 111/64; TEMP 98.4
== END 2023-08-11 18:32 | disposition home or self-care (01) | DRG 443 ==
LOC: ERS 10:37 → 2NO 19:45 → OBSVTOIN 08-09 08:11
PROVIDERS: ADMIT Hospitalist; ATTEND Emergency Medicine
DX: K76.82 Hepatic encephalopathy (principal); K75.81 Nonalcoholic steatohepatitis (NASH); D69.59 Other secondary thrombocytopenia; K74.60 Unspecified cirrhosis of liver; Z79.01 Long term (current) use of anticoagulants; Z85.038 Personal history of other malignant neoplasm of large intestine; Z86.718 Personal history of other venous thrombosis and embolism
CPT/HCPCS: 36415; 36416; 51701; 70450; 71045; 80048; 80053; 80306; 80307; 81001; 82140; 82550; 83605; 83690; 83735; 84484; 85025; 87040; 87086; 93005; 96361; 96374; G0378; J1630; J7030; J7050; Q0162

== ENCOUNTER 2023-08-29 09:30 | Inpatient (IN) | payer MEDICARE ==
[2023-08-29 10:25] LABS: #Basophils 0.1 thou/uL (0.0-0.2); #Eosinphils 0.1 thou/uL (0.0-0.7); #Monocytes 0.6 thou/uL (0.11-0.59); #Neutrophils 3.9 thou/uL (1.40-6.50); %Basophils 1.1 % (0.0-1.0); %Eosinophils 1.4 % (0.0-10.0); %Lymphocytes 15.8 % (21.0-51.0); %Monocytes 11.3 % (0.0-10.0); %Neutrophils 69.7 % (42.0-75.0); Hematocrit 41.3 % (42.0-52.0); Hemoglobin 14.1 g/dL (14.0-18.0); Mean Corpuscular HGB CONC 34.1 g/dL (32.0-36.0); Mean Corpuscular Hemoglobin 35.5 pg (27.0-31.0); Mean Platelet Volume 11.2 fL (7.4-10.4); RBC Distribution Width 15.7 % (11.5-14.5); Red Blood Cell (RBC) Count 3.97 mill/uL (4.70-6.10); White Blood Cell (WBC) Count 5.6 10x3/uL (4.8-10.8)
[2023-08-29 10:28] LABS: Platelet Count 65 10x3/uL (130-400)
[2023-08-29 10:41] LABS: ALT (SGPT) 42 U/L (8-55); AST (SGOT) 44 U/L (5-34); Albumin 3.7 g/dL (3.5-5.0); Alkaline Phosphatase 172 U/L (40-110); Anion Gap 16 mmol/L (10-20); BUN (Urea Nitrogen) 20 mg/dL (8.4-25.7); Calc. Creatinine Clearance 0 mL/min (70-130); Calcium 9.4 mg/dL (7.8-10.44); Carbon Dioxide 19 mmol/L (22-29); Chloride 105 mmol/L (98-107); Estimated GFR 65; Globulin 4.3 g/dL (2.4-3.5); Glucose 123 mg/dL (70-105); Lipase 44 U/L (8-78); Magnesium 2.3 mg/dL (1.6-2.6); Sodium 134 mmol/L (136-145)
[2023-08-29 11:03] LABS: Troponin I Less than 0.010 ng/mL (< 0.028)
[2023-08-29] MEDS ORDERED: Ondansetron ODT 4 MG TAB PO PRN (11:26)
[2023-08-29] MEDS ORDERED: Acetaminophen 325 MG TAB PO PRN (11:26)
[2023-08-29] MEDS ORDERED: Albuterol 2.5 MG (3 mL) NEB ONE (11:30)
[2023-08-29] MEDS ORDERED: Albuterol 2.5 MG (0.5 mL) NEB ONE (11:31)
[2023-08-29] MEDS ORDERED: Furosemide 20 MG (2 mL) VIAL ONE (11:40)
[2023-08-29] MEDS ORDERED: Insulin Regular 300 UNITS/3 ML VIAL ONE (11:40)
[2023-08-29] MEDS ORDERED: CALCIUM GLUC 1 GM (50 ML) BAG ONE (11:40)
[2023-08-29] MEDS ORDERED: Sodium Bicarb 50 mEq/50 ML VIAL ONE (12:02)
[2023-08-29 13:42] LABS: Troponin I Less than 0.010 ng/mL (< 0.028)
[2023-08-29] MEDS ORDERED: Lactulose 20 GM (30 mL) UDCUP ONE (13:43)
[2023-08-29 14:39] LABS: Anion Gap 18 mmol/L (10-20); BUN (Urea Nitrogen) 17 mg/dL (8.4-25.7); Calc. Creatinine Clearance 0 mL/min (70-130); Carbon Dioxide 14 mmol/L (22-29); Chloride 107 mmol/L (98-107); Estimated GFR 69; Glucose 109 mg/dL (70-105); Potassium 5.7 mmol/L (3.5-5.1); Sodium 133 mmol/L (136-145)
[2023-08-29] MEDS: LOKELMA 10 GM PACKET PO SCH (14:42)
[2023-08-29] MEDS: Lactulose 20 GM (30 mL) UDCUP PO SCH ×2 (14:43→22:16)
[2023-08-29] MEDS ORDERED: cefTRIAXone (ROCEPHIN) 2 GM VIAL ONE (14:46)
[2023-08-29] MEDS ORDERED: Pantoprazole 40 MG VIAL ONE (14:46)
[2023-08-29] MEDS ORDERED: Sodium Chloride 0.9% 100 ML ONE (14:48)
[2023-08-29] MEDS: Pantoprazole 40 MG VIAL IVP SCH (14:49)
[2023-08-29] MEDS: Sodium Chloride 0.9% 1,000 ML IV SCH (14:49)
[2023-08-29] MEDS: cefTRIAXone\\ROCEPHIN 2 GM in Sodium Chloride 0.9% 100 ML IVPB SCH (14:50)
[2023-08-29] MEDS ORDERED: Sodium Polystyrene Sulfonate 15 GM (60 mL) BOT PO SCH (15:00)
[2023-08-29 17:03] LABS: INR-International Normal Ratio 1.4; Prothrombin Time 16.8 sec (12.0-14.7)
[2023-08-29 17:04] LABS: PTT 34.7 sec (22.9-36.1)
[2023-08-29 20:48] VITALS: BMI 19.0
[2023-08-29 22:15] LABS: Bacteria/HPF None Seen HPF (None Seen); Bilirubin Negative (Negative); Blood, Urine Negative (Negative); CAUTI Indications for Culture Alt mental st,lethar; Clarity Clear (Clear); Glucose, Urine (Dipstick) Normal (Negative); Ketone, Urine Negative (Negative); Leukocyte Negative Leu/uL (Negative); Nitrite Negative (Negative); Protein, Urine (Dipstick) Negative (Neg-Trace); RBC/HPF 0-3 HPF (0-3); Specific Gravity, Urine 1.014 (1.002-1.036); Squamous Epithelial 0-3 HPF (0-3); Urobilinogen Normal mg/dL (Less than 2); WBC/HPF 0-3 HPF (0-3); pH, Urine 6.5 (5.0-9.0)
[2023-08-29] MEDS: Rifaximin 550 MG TAB PO SCH (22:16)
[2023-08-29] MEDS: Ondansetron PF 4 MG/2 ML Vial IVP PRN (22:16)
[2023-08-29] MEDS: Nadolol 40 MG TAB PO SCH (22:17)
[2023-08-29 22:34] LABS: Urine Culture Reflex No No
[2023-08-30 01:15] LABS: Anion Gap 16 mmol/L (10-20); BUN (Urea Nitrogen) 19 mg/dL (8.4-25.7); Calc. Creatinine Clearance 55 mL/min (70-130); Calcium 8.6 mg/dL (7.8-10.44); Carbon Dioxide 19 mmol/L (22-29); Chloride 106 mmol/L (98-107); Estimated GFR 83; Glucose 117 mg/dL (70-105); Potassium 4.5 mmol/L (3.5-5.1); Sodium 136 mmol/L (136-145)
[2023-08-30 05:56] LABS: ALT (SGPT) 44 U/L (8-55); AST (SGOT) 51 U/L (5-34); Alkaline Phosphatase 140 U/L (40-110); Anion Gap 16 mmol/L (10-20); BUN (Urea Nitrogen) 20 mg/dL (8.4-25.7); Bilirubin, Total 3.3 mg/dL (0.2-1.2); Calc. Creatinine Clearance 55 mL/min (70-130); Calcium 8.4 mg/dL (7.8-10.44); Carbon Dioxide 16 mmol/L (22-29); Chloride 107 mmol/L (98-107); Estimated GFR 82; Globulin 3.6 g/dL (2.4-3.5); Glucose 104 mg/dL (70-105); Potassium 4.2 mmol/L (3.5-5.1); Protein, Total 6.6 g/dL (6.0-8.3); Sodium 135 mmol/L (136-145)
[2023-08-30 06:23] LABS: Hematocrit 38.8 % (42.0-52.0); Hemoglobin 12.8 g/dL (14.0-18.0); Mean Platelet Volume 11.4 fL (7.4-10.4); Platelet Count 66 10x3/uL (130-400); Red Blood Cell (RBC) Count 3.56 mill/uL (4.70-6.10); White Blood Cell (WBC) Count 5.1 10x3/uL (4.8-10.8)
[2023-08-30 06:54] LABS: Anisocytosis SLIGHT = 6-15 cells HPF (0-5); Macrocytosis SLIGHT = 6-15 cells HPF (0-5); Platelet Adequacy Comment Platelets Decreased; Polychromasia SLIGHT = 2-3 cells HPF (0-2)
[2023-08-30 07:16] LABS: %Basophils 1.4 % (0.0-1.0); %Eosinophils 2.5 % (0.0-10.0); %Lymphocytes 14.3 % (21.0-51.0); %Monocytes 12.4 % (0.0-10.0); %Neutrophils 68.4 % (42.0-75.0)
[2023-08-30 07:17] LABS: #Basophils 0.1 thou/uL (0.0-0.2); #Eosinphils 0.1 thou/uL (0.0-0.7); #Monocytes 0.6 thou/uL (0.11-0.59); #Neutrophils 3.5 thou/uL (1.40-6.50)
[2023-08-30] MEDS: FLU VACC QS2023-24(6MOS UP)/PF 60 MCG/0.5 ML SYRINGE IM ONE (08:28)
[2023-08-30] MEDS: Enoxaparin 30 MG (0.3 mL) SYRINGE SC SCH (09:26)
[2023-08-30] MEDS: Pantoprazole 40 MG VIAL IVP SCH (09:27)
[2023-08-30] MEDS ORDERED: Lidocaine 1% PF 5 ML VIAL ONE (14:21)
[2023-08-30] MEDS ORDERED: Sodium Bicarbonate 2.5 MEQ/5 ML SDV ONE (15:02)
[2023-08-30] MEDS: Sodium Bicarbonate Tab 325 MG TAB PO SCH (15:49)
[2023-08-30 17:10] LABS: RBC Count-Automated (BF) 75 /cu.mm; WBC/Nucleated-Auto (BF) 25 /cu.mm
[2023-08-30 17:20] LABS: BF Color Yellow; Body Fluid Source Ascites Body Fluid; Clarity Clear (Clear); Tube # EDTA
[2023-08-30 18:01] LABS: BF Segmented Neutrophils 6 %; Cell Count Non Hematic 66 %; Lymphocytes 28 %
[2023-08-31 10:24] LABS: Anion Gap 12 mmol/L (10-20); BUN (Urea Nitrogen) 20 mg/dL (8.4-25.7); Calc. Creatinine Clearance 55 mL/min (70-130); Carbon Dioxide 21 mmol/L (22-29); Chloride 106 mmol/L (98-107); Estimated GFR 82; Glucose 188 mg/dL (70-105); Potassium 4.8 mmol/L (3.5-5.1); Sodium 134 mmol/L (136-145)
[2023-08-31 13:47] VITALS: BP 107/65; TEMP 97.9
== END 2023-08-31 16:30 | DRG 442 ==
LOC: ERS 09:30 → ERHOLD 11:42 → 2NO 20:08 → T4-B 08-30 15:34
PROVIDERS: ADMIT Family Medicine; ATTEND Internal Medicine
PROC: 0W9G3ZZ Drainage of Peritoneal Cavity, Percutaneous Approach (ICD-10-PCS; principal; 2023-08-30)
DX: K76.82 Hepatic encephalopathy (principal); E87.1 Hypo-osmolality and hyponatremia; E87.20 Acidosis, unspecified; N17.9 Acute kidney failure, unspecified; K74.60 Unspecified cirrhosis of liver; E87.5 Hyperkalemia; Z79.899 Other long term (current) drug therapy; Z91.041 Radiographic dye allergy status; Z88.8 Allergy status to other drugs, medicaments and biological substances; N18.2 Chronic kidney disease, stage 2 (mild); I12.9 Hypertensive chronic kidney disease with stage 1 through stage 4 chronic kidney disease, or unspecified chronic kidney disease; D63.1 Anemia in chronic kidney disease
CPT/HCPCS: 36415; 36416; 43753; 49083; 70450; 71045; 74018; 74176; 80048; 80053; 81001; 82042; 82140; 83690; 83735; 84157; 84484; 85025; 85060; 85610; 85730; 87040; 87070; 87086; 87205; 89051; 93005; 94640; 96361; 96374; 96375; C9113; J0613; J0696; J1650; J1815; J1940; J2405; J3490; J7050; J7611

== ENCOUNTER → 2023-11-12 | Day surgery (SDC) | payer MEDICARE ==
[~2023-11-12] MED LIST: Albumin 25% 0 ML ONE; Lidocaine 1% PF 5 ML VIAL ONE; Ondansetron PF 4 MG/2 ML Vial ONE; Sodium Bicarbonate 2.5 MEQ/5 ML SDV ONE
[2023-11-12 08:49] LABS: #Basophils 0.03 10x3/uL (0.0-0.2); %Eosinophils 4.3 % (0.0-10.0); %Lymphocytes 15.5 % (21.0-51.0); %Monocytes 9.9 % (0.0-10.0); Hematocrit 29.9 % (42.0-52.0); Hemoglobin 9.9 g/dL (14.0-18.0); Mean Corpuscular HGB CONC 33.1 g/dL (32.0-36.0); Mean Corpuscular Hemoglobin 35.5 pg (27.0-31.0); Mean Corpuscular Volume 107.2 fL (78.0-98.0); Mean Platelet Volume 11.2 fL (7.4-10.4); Platelet Count 64 10x3/uL (130-400); RBC Distribution Width 14.1 % (11.5-14.5); Red Blood Cell (RBC) Count 2.79 mill/uL (4.70-6.10)
[2023-11-12 08:54] LABS: INR-International Normal Ratio 1.8; PTT 39.7 sec (22.9-36.1); Prothrombin Time 20.7 sec (12.0-14.7)
[2023-11-12 09:40] LABS: Anisocytosis SLIGHT = 6-15 cells HPF (0-5); Macrocytosis SLIGHT = 6-15 cells HPF (0-5); Platelet Adequacy Comment Significant Decrease; Polychromasia SLIGHT = 2-3 cells HPF (0-2)
[2023-11-12 10:49] LABS: Hematocrit 29.4 % (42.0-52.0); Hemoglobin 9.6 g/dL (14.0-18.0)
[2023-11-12 16:08] LABS: RBC Count-Automated (BF) 87817 /cu.mm; WBC/Nucleated-Auto (BF) 64 /cu.mm
[2023-11-12 16:16] LABS: BF Color Red; Body Fluid Source Ascites Body Fluid; Clarity Cloudy/Turbid (Clear); Tube # EDTA
[2023-11-12 18:27] LABS: Cell Count Non Hematic 32 %; Eosinophils 12 %; Lymphocytes 52 %
== END ==
LOC: ULT 07:27
PROVIDERS: ATTEND Physician Assistant Medical
PROC: 0W9G30Z Drainage of Peritoneal Cavity with Drainage Device, Percutaneous Approach (ICD-10-PCS; principal; 2023-11-12)
DX: K70.30 Alcoholic cirrhosis of liver without ascites (principal); I85.10 Secondary esophageal varices without bleeding; K72.90 Hepatic failure, unspecified without coma; Z88.8 Allergy status to other drugs, medicaments and biological substances
CPT/HCPCS: 49083; 82042; 84157; 85014; 85018; 85025; 85610; 85730; 87070; 87205; 89051; J2405; 85060; 88112; 88305; P9047

== ENCOUNTER 2023-11-19 17:54 | Inpatient (IN) | payer MEDICARE ==
[2023-11-19 19:03] LABS: #Basophils 0.06 10x3/uL (0.0-0.2); #Eosinphils Less than 0.03 10x3/uL (0.0-0.7); %Basophils 0.8 % (0.0-1.0); %Eosinophils 0.1 % (0.0-10.0); %Lymphocytes 9.3 % (21.0-51.0); %Monocytes 9.1 % (0.0-10.0); %Neutrophils 80.4 % (42.0-75.0); Hematocrit 36.4 % (42.0-52.0); Hemoglobin 12.1 g/dL (14.0-18.0); Mean Corpuscular HGB CONC 33.2 g/dL (32.0-36.0); Mean Corpuscular Volume 105.2 fL (78.0-98.0); Platelet Count 82 10x3/uL (130-400); RBC Distribution Width 13.9 % (11.5-14.5); Red Blood Cell (RBC) Count 3.46 mill/uL (4.70-6.10)
[2023-11-19 19:16] LABS: INR-International Normal Ratio 1.6; Prothrombin Time 18.9 sec (12.0-14.7)
[2023-11-19 19:17] LABS: ALT (SGPT) 29 U/L (8-55); AST (SGOT) 40 U/L (5-34); Acetaminophen Less than 10 mcg/mL (10.0-30.0); Alcohol Less than 10.0 mg/dL (Less than 10); Alkaline Phosphatase 120 U/L (40-110); Anion Gap 16 mmol/L (10-20); BUN (Urea Nitrogen) 16 mg/dL (8.4-25.7); Bilirubin, Total 3.7 mg/dL (0.2-1.2); Calc. Creatinine Clearance 0 mL/min (70-130); Calcium 9.1 mg/dL (7.8-10.44); Carbon Dioxide 20 mmol/L (22-29); Chloride 106 mmol/L (98-107); Estimated GFR 80; Globulin 3.3 g/dL (2.4-3.5); Glucose 126 mg/dL (70-105); Potassium 5.7 mmol/L (3.5-5.1); Protein, Total 7.3 g/dL (6.0-8.3); Salicylate Less than 8.0 mg/dL (15.0-30.0); Sodium 136 mmol/L (136-145)
[2023-11-19 19:22] LABS: Troponin I Less than 0.010 ng/mL (< 0.028)
[2023-11-19] MEDS ORDERED: Lactulose 20 GM (30 mL) UDCUP ONE (19:44)
[2023-11-19 20:26] LABS: Bacteria/HPF None Seen HPF (None Seen); Bilirubin Negative (Negative); Blood, Urine Negative (Negative); CAUTI Indications for Culture Alt mental st,lethar; Clarity Clear (Clear); Glucose, Urine (Dipstick) Normal (Negative); Ketone, Urine Negative (Negative); Leukocyte Negative Leu/uL (Negative); Nitrite Negative (Negative); Protein, Urine (Dipstick) 20 mg/dL (Neg-Trace); RBC/HPF 0-3 HPF (0-3); Specific Gravity, Urine 1.025 (1.002-1.036); Squamous Epithelial None Seen HPF (0-3); Urobilinogen Normal mg/dL (Less than 2); WBC/HPF 0-3 HPF (0-3); pH, Urine 6.5 (5.0-9.0)
[2023-11-19 20:27] LABS: Urine Culture Reflex No No
[2023-11-19 20:31] LABS: Amphetamine Not Detected (NotDetected); Barbiturates Screen Not Detected (NotDetected); Benzodiazepine Screen Not Detected (NotDetected); Cocaine Metabolite Screen Not Detected (NotDetected); Methadone Not Detected (NotDetected); Methamphetamine Not Detected (NotDetected); Opiate Screen Not Detected (NotDetected); Oxycodone Screen Not Detected (NotDetected); Phencyclidine (PCP) Not Detected (NotDetected); THC/Cannabinoid Screen Not Detected (NotDetected); Tricyclic Screen Not Detected (NotDetected)
[2023-11-19] MEDS ORDERED: Ondansetron ODT 4 MG TAB PO PRN (21:01)
[2023-11-19] MEDS ORDERED: Ondansetron PF 4 MG/2 ML Vial IVP PRN (21:01)
[2023-11-19] MEDS ORDERED: Acetaminophen 325 MG TAB PO PRN (21:01)
[2023-11-19] MEDS ORDERED: Acetaminophen 650 MG Suppository PR PRN (21:01)
[2023-11-19 22:28] VITALS: BMI 20.6
[2023-11-19 23:47] LABS: Anion Gap 15 mmol/L (10-20); BUN (Urea Nitrogen) 18 mg/dL (8.4-25.7); Calc. Creatinine Clearance 65 mL/min (70-130); Calcium 9.1 mg/dL (7.8-10.44); Carbon Dioxide 18 mmol/L (22-29); Chloride 105 mmol/L (98-107); Estimated GFR 92; Glucose 130 mg/dL (70-105); Potassium 4.8 mmol/L (3.5-5.1)
[2023-11-19 23:58] LABS: Sodium 133 mmol/L (136-145)
[2023-11-20 04:25] LABS: #Basophils 0.05 10x3/uL (0.0-0.2); #Eosinphils Less than 0.03 10x3/uL (0.0-0.7); %Basophils 0.7 % (0.0-1.0); %Eosinophils 0.1 % (0.0-10.0); %Lymphocytes 13.4 % (21.0-51.0); %Neutrophils 75.5 % (42.0-75.0); Hematocrit 34.3 % (42.0-52.0); Hemoglobin 11.5 g/dL (14.0-18.0); Mean Corpuscular HGB CONC 33.5 g/dL (32.0-36.0); Mean Corpuscular Hemoglobin 33.5 pg (27.0-31.0); Mean Platelet Volume 10.3 fL (7.4-10.4); Platelet Count 74 10x3/uL (130-400); RBC Distribution Width 13.7 % (11.5-14.5); Red Blood Cell (RBC) Count 3.43 mill/uL (4.70-6.10)
[2023-11-20 04:36] LABS: Anion Gap 15 mmol/L (10-20); BUN (Urea Nitrogen) 19 mg/dL (8.4-25.7); Calc. Creatinine Clearance 68 mL/min (70-130); Calcium 8.6 mg/dL (7.8-10.44); Carbon Dioxide 18 mmol/L (22-29); Chloride 107 mmol/L (98-107); Estimated GFR 98; Glucose 106 mg/dL (70-105); Potassium 3.9 mmol/L (3.5-5.1); Sodium 136 mmol/L (136-145)
[2023-11-20] MEDS ORDERED: Non-Formulary Item 1 EACH (Ondansetron Hcl [Zofran] 4 MG Tab) PO PRN (09:17)
[2023-11-20] MEDS: Lactulose 20 GM (30 mL) UDCUP PO SCH (09:39)
[2023-11-20] MEDS: Rifaximin 550 MG TAB PO SCH (09:40)
[2023-11-20] MEDS: Ondansetron ODT 4 MG TAB PO PRN (09:46)
[2023-11-20] MEDS ORDERED: Promethazine 25 MG TAB PO PRN (11:50)
[2023-11-20] MEDS: Sodium Bicarbonate Tab 325 MG TAB PO SCH (15:33)
[2023-11-20] MEDS: Midodrine HCl 5 MG TAB PO SCH (15:33)
[2023-11-20] MEDS: Nadolol 40 MG TAB PO SCH (20:47)
[2023-11-20] MEDS ORDERED: Non-Formulary Item 1 EACH (Nadolol [Corgard] 20 MG Tab) PO SCH (21:00)
[2023-11-21] MEDS: Pantoprazole DR 40 MG TAB PO SCH (08:46)
[2023-11-21] MEDS: Spironolactone 100 MG TAB PO SCH (08:46)
[2023-11-21] MEDS: Furosemide 40 MG TAB PO SCH (08:46)
[2023-11-21 08:47] LABS: #Basophils 0.07 10x3/uL (0.0-0.2); %Basophils 1.4 % (0.0-1.0); %Eosinophils 1.4 % (0.0-10.0); %Lymphocytes 17.3 % (21.0-51.0); %Monocytes 11.6 % (0.0-10.0); %Neutrophils 68.1 % (42.0-75.0); Hematocrit 31.8 % (42.0-52.0); Hemoglobin 10.7 g/dL (14.0-18.0); Mean Corpuscular HGB CONC 33.6 g/dL (32.0-36.0); Mean Corpuscular Hemoglobin 34.5 pg (27.0-31.0); Mean Corpuscular Volume 102.6 fL (78.0-98.0); Mean Platelet Volume 11.5 fL (7.4-10.4); Platelet Count 62 10x3/uL (130-400); RBC Distribution Width 13.9 % (11.5-14.5)
[2023-11-21 09:13] LABS: ALT (SGPT) 25 U/L (8-55); AST (SGOT) 32 U/L (5-34); Albumin 3.3 g/dL (3.5-5.0); Alkaline Phosphatase 101 U/L (40-110); Anion Gap 14 mmol/L (10-20); BUN (Urea Nitrogen) 20 mg/dL (8.4-25.7); Bilirubin, Total 3.1 mg/dL (0.2-1.2); Calc. Creatinine Clearance 67 mL/min (70-130); Calcium 8.2 mg/dL (7.8-10.44); Carbon Dioxide 19 mmol/L (22-29); Chloride 110 mmol/L (98-107); Estimated GFR 96; Globulin 2.8 g/dL (2.4-3.5); Glucose 98 mg/dL (70-105); Potassium 3.9 mmol/L (3.5-5.1); Protein, Total 6.1 g/dL (6.0-8.3); Sodium 139 mmol/L (136-145)
[2023-11-21 12:34] VITALS: TEMP 98.4
[2023-11-21 13:19] VITALS: BP 131/75
== END 2023-11-21 16:19 | disposition home or self-care (01) | DRG 442 ==
LOC: ERS 17:54 → T4-A 20:35
PROVIDERS: ADMIT Student in an Organized Health Care Education/Training Program; ATTEND Family Medicine
DX: K76.82 Hepatic encephalopathy (principal); D61.818 Other pancytopenia; R18.8 Other ascites; I12.9 Hypertensive chronic kidney disease with stage 1 through stage 4 chronic kidney disease, or unspecified chronic kidney disease; N18.9 Chronic kidney disease, unspecified; K74.60 Unspecified cirrhosis of liver; E87.5 Hyperkalemia; E80.6 Other disorders of bilirubin metabolism; Z88.8 Allergy status to other drugs, medicaments and biological substances; Z91.018 Allergy to other foods; Z79.899 Other long term (current) drug therapy; Z90.49 Acquired absence of other specified parts of digestive tract
CPT/HCPCS: 36415; 36416; 51701; 70450; 80048; 80053; 80306; 80307; 81001; 82140; 83735; 83880; 84443; 84484; 85025; 85610; 93005; Q0162

== ENCOUNTER 2023-11-26 19:55 | Inpatient (IN) | payer MEDICARE ==
[2023-11-26 21:44] LABS: ALT (SGPT) 37 U/L (8-55); AST (SGOT) 46 U/L (5-34); Acetaminophen Less than 10 mcg/mL (10.0-30.0); Albumin 3.8 g/dL (3.5-5.0); Alcohol Less than 10.0 mg/dL (Less than 10); Alkaline Phosphatase 143 U/L (40-110); Anion Gap 16 mmol/L (10-20); BUN (Urea Nitrogen) 16 mg/dL (8.4-25.7); Calc. Creatinine Clearance 0 mL/min (70-130); Calcium 8.7 mg/dL (7.8-10.44); Carbon Dioxide 19 mmol/L (22-29); Chloride 108 mmol/L (98-107); Estimated GFR 83; Globulin 3.2 g/dL (2.4-3.5); Glucose 113 mg/dL (70-105); Potassium 4.8 mmol/L (3.5-5.1); Salicylate Less than 8.0 mg/dL (15.0-30.0); Sodium 138 mmol/L (136-145)
[2023-11-26 22:03] LABS: #Basophils 0.04 10x3/uL (0.0-0.2); %Basophils 0.8 % (0.0-1.0); %Eosinophils 4.5 % (0.0-10.0); %Lymphocytes 12.9 % (21.0-51.0); %Neutrophils 70.4 % (42.0-75.0); Hematocrit 30.5 % (42.0-52.0); Hemoglobin 10.3 g/dL (14.0-18.0); Mean Corpuscular HGB CONC 33.8 g/dL (32.0-36.0); Mean Corpuscular Hemoglobin 34.8 pg (27.0-31.0); Mean Platelet Volume 11.6 fL (7.4-10.4); Platelet Count 51 10x3/uL (130-400); RBC Distribution Width 14.2 % (11.5-14.5); Red Blood Cell (RBC) Count 2.96 mill/uL (4.70-6.10)
[2023-11-26] MEDS ORDERED: Lactulose 20 GM (30 mL) UDCUP ONE (23:10)
[2023-11-26 23:18] LABS: Troponin I Less than 0.010 ng/mL (< 0.028)
[2023-11-26] MEDS ORDERED: Ondansetron ODT 4 MG TAB SL PRN (23:45)
[2023-11-26] MEDS ORDERED: Acetaminophen 325 MG TAB PO PRN (23:45)
[2023-11-26] MEDS ORDERED: Acetaminophen 500 MG TAB PO PRN (23:51)
[2023-11-27 00:53] VITALS: BMI 20.7
[2023-11-27] MEDS: Ondansetron PF 4 MG/2 ML Vial IVP PRN (01:37)
[2023-11-27 06:30] LABS: #Basophils 0.04 10x3/uL (0.0-0.2); %Basophils 0.8 % (0.0-1.0); %Eosinophils 2.8 % (0.0-10.0); %Lymphocytes 17.2 % (21.0-51.0); %Monocytes 10.1 % (0.0-10.0); %Neutrophils 68.7 % (42.0-75.0); Anion Gap 17 mmol/L (10-20); BUN (Urea Nitrogen) 17 mg/dL (8.4-25.7); Calc. Creatinine Clearance 59 mL/min (70-130); Calcium 8.4 mg/dL (7.8-10.44); Carbon Dioxide 18 mmol/L (22-29); Chloride 109 mmol/L (98-107); Estimated GFR 81; Glucose 102 mg/dL (70-105); Hematocrit 33.9 % (42.0-52.0); Hemoglobin 11.5 g/dL (14.0-18.0); Mean Corpuscular HGB CONC 33.9 g/dL (32.0-36.0); Mean Corpuscular Hemoglobin 34.1 pg (27.0-31.0); Mean Corpuscular Volume 100.6 fL (78.0-98.0); Mean Platelet Volume 11.4 fL (7.4-10.4); Platelet Count 57 10x3/uL (130-400); Potassium 3.7 mmol/L (3.5-5.1); RBC Distribution Width 14.2 % (11.5-14.5); Red Blood Cell (RBC) Count 3.37 mill/uL (4.70-6.10); Sodium 140 mmol/L (136-145)
[2023-11-27] MEDS: Midodrine HCl 5 MG TAB PO SCH (09:03)
[2023-11-27] MEDS: Spironolactone 100 MG TAB PO SCH (09:03)
[2023-11-27] MEDS: Lactulose 20 GM (30 mL) UDCUP PO SCH (09:03)
[2023-11-27] MEDS: Furosemide 40 MG TAB PO SCH (09:03)
[2023-11-27] MEDS: Sodium Bicarbonate Tab 325 MG TAB PO SCH (09:03)
[2023-11-27] MEDS: Rifaximin 550 MG TAB PO SCH (09:04)
[2023-11-27] MEDS: Pantoprazole DR 40 MG TAB PO SCH (09:04)
[2023-11-27 13:07] LABS: INR-International Normal Ratio 1.6; PTT 37.4 sec (22.9-36.1)
[2023-11-27 18:19] LABS: RBC Count-Automated (BF) 24310 /cu.mm; WBC/Nucleated-Auto (BF) 61 /cu.mm
[2023-11-27 18:26] LABS: Fluid, Protein 0.9 g/dL (Not Available)
[2023-11-27 18:36] LABS: Body Fluid Source Peritoneal Fluid; Tube # EDTA
[2023-11-27 18:37] LABS: BF Color Red
[2023-11-27 19:22] LABS: Cell Count Non Hematic 88 %; Clarity Cloudy/Turbid (Clear); Eosinophils 1 %; Lymphocytes 11 %
[2023-11-27] MEDS: Nadolol 40 MG TAB PO SCH (20:44)
[2023-11-27] MEDS: Ondansetron ODT 4 MG TAB PO PRN (21:42)
[2023-11-28 06:09] LABS: Hematocrit 32.7 % (42.0-52.0); Hemoglobin 11.3 g/dL (14.0-18.0); Mean Corpuscular HGB CONC 34.6 g/dL (32.0-36.0); Mean Corpuscular Hemoglobin 35.2 pg (27.0-31.0); Mean Corpuscular Volume 101.9 fL (78.0-98.0); Red Blood Cell (RBC) Count 3.21 mill/uL (4.70-6.10)
[2023-11-28 06:10] LABS: #Basophils 0.07 10x3/uL (0.0-0.2); #Eosinphils Less than 0.03 10x3/uL (0.0-0.7); %Basophils 1.2 % (0.0-1.0); %Lymphocytes 14.9 % (21.0-51.0); %Neutrophils 72.7 % (42.0-75.0); Mean Platelet Volume 11.7 fL (7.4-10.4); Platelet Count 65 10x3/uL (130-400); RBC Distribution Width 14.3 % (11.5-14.5)
[2023-11-28 06:22] LABS: Anion Gap 10 mmol/L (10-20); BUN (Urea Nitrogen) 20 mg/dL (8.4-25.7); Calc. Creatinine Clearance 47 mL/min (70-130); Calcium 8.7 mg/dL (7.8-10.44); Carbon Dioxide 22 mmol/L (22-29); Chloride 106 mmol/L (98-107); Estimated GFR 63; Glucose 121 mg/dL (70-105); Potassium 4.2 mmol/L (3.5-5.1); Sodium 134 mmol/L (136-145)
[2023-11-28] MEDS ORDERED: Lactulose 20 GM (30 mL) UDCUP PO SCH (09:15)
[2023-11-28] MEDS: Lactulose 20 GM (30 mL) UDCUP PO SCH ×2 (09:55→18:12)
[2023-11-29 05:42] LABS: #Basophils 0.08 10x3/uL (0.0-0.2); %Basophils 0.8 % (0.0-1.0); %Eosinophils 3.5 % (0.0-10.0); %Lymphocytes 9.3 % (21.0-51.0); %Monocytes 8.4 % (0.0-10.0); %Neutrophils 77.6 % (42.0-75.0); Hematocrit 36.9 % (42.0-52.0); Hemoglobin 12.7 g/dL (14.0-18.0); Mean Corpuscular HGB CONC 34.4 g/dL (32.0-36.0); Mean Corpuscular Hemoglobin 34.1 pg (27.0-31.0); Mean Corpuscular Volume 99.2 fL (78.0-98.0); Mean Platelet Volume 11.6 fL (7.4-10.4); Platelet Count 86 10x3/uL (130-400); RBC Distribution Width 14.2 % (11.5-14.5); Red Blood Cell (RBC) Count 3.72 mill/uL (4.70-6.10)
[2023-11-29 05:50] LABS: ALT (SGPT) 38 U/L (8-55); AST (SGOT) 35 U/L (5-34); Albumin 3.7 g/dL (3.5-5.0); Alkaline Phosphatase 132 U/L (40-110); Anion Gap 15 mmol/L (10-20); BUN (Urea Nitrogen) 24 mg/dL (8.4-25.7); Calc. Creatinine Clearance 47 mL/min (70-130); Calcium 9.2 mg/dL (7.8-10.44); Carbon Dioxide 19 mmol/L (22-29); Chloride 105 mmol/L (98-107); Estimated GFR 62; Globulin 3.4 g/dL (2.4-3.5); Glucose 135 mg/dL (70-105); Potassium 4.3 mmol/L (3.5-5.1); Protein, Total 7.1 g/dL (6.0-8.3); Sodium 135 mmol/L (136-145)
[2023-11-29] MEDS: Albumin 25% 25 GM (100 mL) BOT IVPB SCH (17:49)
[2023-11-29] MEDS: Ondansetron PF 4 MG/2 ML Vial IVP PRN (23:19)
[2023-11-30 05:23] LABS: #Basophils 0.06 10x3/uL (0.0-0.2); %Eosinophils 3.4 % (0.0-10.0); %Monocytes 10.5 % (0.0-10.0); %Neutrophils 68.6 % (42.0-75.0); Hemoglobin 10.3 g/dL (14.0-18.0); Mean Corpuscular HGB CONC 34.3 g/dL (32.0-36.0); Mean Corpuscular Hemoglobin 34.9 pg (27.0-31.0); Mean Corpuscular Volume 101.7 fL (78.0-98.0); Mean Platelet Volume 11.1 fL (7.4-10.4); Platelet Count 62 10x3/uL (130-400); RBC Distribution Width 14.2 % (11.5-14.5); Red Blood Cell (RBC) Count 2.95 mill/uL (4.70-6.10)
[2023-11-30 05:38] LABS: ALT (SGPT) 27 U/L (8-55); AST (SGOT) 24 U/L (5-34); Albumin 4.2 g/dL (3.5-5.0); Alkaline Phosphatase 96 U/L (40-110); Anion Gap 15 mmol/L (10-20); BUN (Urea Nitrogen) 29 mg/dL (8.4-25.7); Bilirubin, Total 4.4 mg/dL (0.2-1.2); Calc. Creatinine Clearance 43 mL/min (70-130); Calcium 8.9 mg/dL (7.8-10.44); Carbon Dioxide 22 mmol/L (22-29); Chloride 100 mmol/L (98-107); Estimated GFR 55; Globulin 2.5 g/dL (2.4-3.5); Glucose 91 mg/dL (70-105); Protein, Total 6.7 g/dL (6.0-8.3); Sodium 133 mmol/L (136-145)
[2023-11-30] MEDS: Albumin 25% 25 GM (100 mL) BOT IVPB SCH (17:15)
[2023-12-01 11:02] LABS: Anion Gap 16 mmol/L (10-20); BUN (Urea Nitrogen) 26 mg/dL (8.4-25.7); Calc. Creatinine Clearance 47 mL/min (70-130); Calcium 9.5 mg/dL (7.8-10.44); Carbon Dioxide 23 mmol/L (22-29); Chloride 103 mmol/L (98-107); Estimated GFR 61; Glucose 131 mg/dL (70-105); Potassium 3.9 mmol/L (3.5-5.1); Sodium 138 mmol/L (136-145)
[2023-12-01 11:06] LABS: ALT (SGPT) 21 U/L (8-55); AST (SGOT) 22 U/L (5-34); Albumin 5.2 g/dL (3.5-5.0); Alkaline Phosphatase 74 U/L (40-110); Anion Gap 16 mmol/L (10-20); BUN (Urea Nitrogen) 26 mg/dL (8.4-25.7); Bilirubin, Total 3.5 mg/dL (0.2-1.2); Calc. Creatinine Clearance 47 mL/min (70-130); Calcium 9.5 mg/dL (7.8-10.44); Carbon Dioxide 22 mmol/L (22-29); Chloride 104 mmol/L (98-107); Estimated GFR 63; Globulin 2.1 g/dL (2.4-3.5); Glucose 131 mg/dL (70-105); Potassium 3.9 mmol/L (3.5-5.1); Protein, Total 7.3 g/dL (6.0-8.3); Sodium 138 mmol/L (136-145)
[2023-12-01 11:21] LABS: #Basophils 0.03 10x3/uL (0.0-0.2); #Eosinphils Less than 0.03 10x3/uL (0.0-0.7); %Basophils 0.9 % (0.0-1.0); %Lymphocytes 17.9 % (21.0-51.0); %Monocytes 11.5 % (0.0-10.0); %Neutrophils 69.4 % (42.0-75.0); Hematocrit 28.3 % (42.0-52.0); Hemoglobin 9.8 g/dL (14.0-18.0); Mean Corpuscular HGB CONC 34.6 g/dL (32.0-36.0); Mean Corpuscular Hemoglobin 34.3 pg (27.0-31.0); Mean Platelet Volume 11.5 fL (7.4-10.4); Platelet Count 48 10x3/uL (130-400); Red Blood Cell (RBC) Count 2.86 mill/uL (4.70-6.10)
[2023-12-01 18:52] VITALS: BP 125/74; TEMP 98
== END 2023-12-01 20:00 | disposition home or self-care (01) | DRG 442 ==
LOC: ERS 19:55 → T4-B 23:29 → OBSVTOIN 11-28 09:32
PROVIDERS: ADMIT Internal Medicine; ATTEND Internal Medicine
PROC: 0W9G3ZZ Drainage of Peritoneal Cavity, Percutaneous Approach (ICD-10-PCS; principal; 2023-11-27)
PROC: 30233J1 Transfusion of Nonautologous Serum Albumin into Peripheral Vein, Percutaneous Approach (ICD-10-PCS; 2023-11-29)
DX: K76.82 Hepatic encephalopathy (principal); D61.818 Other pancytopenia; I85.10 Secondary esophageal varices without bleeding; R18.8 Other ascites; N17.9 Acute kidney failure, unspecified; K75.81 Nonalcoholic steatohepatitis (NASH); K74.60 Unspecified cirrhosis of liver; D64.9 Anemia, unspecified; Z88.8 Allergy status to other drugs, medicaments and biological substances; Z91.018 Allergy to other foods; Z98.890 Other specified postprocedural states; Z79.899 Other long term (current) drug therapy; Z86.718 Personal history of other venous thrombosis and embolism; Z90.49 Acquired absence of other specified parts of digestive tract; Z85.038 Personal history of other malignant neoplasm of large intestine
CPT/HCPCS: 36415; 49083; 71045; 80048; 80053; 80307; 82140; 82945; 84157; 84443; 84484; 85025; 85060; 85610; 85730; 87070; 87205; 89051; 93005; J2405; P9047; Q0162

== ENCOUNTER 2023-12-02 16:43 | Inpatient (IN) | payer MEDICARE ==
[2023-12-02 17:43] LABS: #Basophils 0.04 10x3/uL (0.0-0.2); %Lymphocytes 15.7 % (21.0-51.0); %Neutrophils 61.8 % (42.0-75.0); Hematocrit 35.3 % (42.0-52.0); Hemoglobin 11.7 g/dL (14.0-18.0); Mean Corpuscular HGB CONC 33.1 g/dL (32.0-36.0); Mean Corpuscular Hemoglobin 33.8 pg (27.0-31.0); Mean Platelet Volume 11.6 fL (7.4-10.4); Platelet Count 46 10x3/uL (130-400); RBC Distribution Width 14.1 % (11.5-14.5); Red Blood Cell (RBC) Count 3.46 mill/uL (4.70-6.10)
[2023-12-02 17:51] LABS: Lipase 16 U/L (8-78)
[2023-12-02 17:54] LABS: Acetaminophen Less than 10 mcg/mL (10.0-30.0); Alcohol Less than 10.0 mg/dL (Less than 10); Salicylate Less than 8.0 mg/dL (15.0-30.0)
[2023-12-02 18:09] LABS: Troponin I Less than 0.010 ng/mL (< 0.028)
[2023-12-02] MEDS ORDERED: Atropine Sulfate 1 mg/10 ml Syringe ONE (18:34)
[2023-12-02 19:49] LABS: Amphetamine Not Detected (NotDetected); Barbiturates Screen Not Detected (NotDetected); Benzodiazepine Screen Not Detected (NotDetected); Cocaine Metabolite Screen Not Detected (NotDetected); Methadone Not Detected (NotDetected); Methamphetamine Not Detected (NotDetected); Opiate Screen Not Detected (NotDetected); Oxycodone Screen Not Detected (NotDetected); Phencyclidine (PCP) Not Detected (NotDetected); THC/Cannabinoid Screen Not Detected (NotDetected); Tricyclic Screen Not Detected (NotDetected)
[2023-12-02 20:13] LABS: Bacteria/HPF None Seen HPF (None Seen); Bilirubin Negative (Negative); Blood, Urine 2+ (Negative); CAUTI Indications for Culture Alt mental st,lethar; Clarity Clear (Clear); Glucose, Urine (Dipstick) Normal (Negative); Ketone, Urine Negative (Negative); Leukocyte Negative Leu/uL (Negative); Nitrite Negative (Negative); Protein, Urine (Dipstick) 10 mg/dL (Neg-Trace); RBC/HPF 21-50 HPF (0-3); Specific Gravity, Urine 1.021 (1.002-1.036); Squamous Epithelial None Seen HPF (0-3); WBC/HPF 0-3 HPF (0-3)
[2023-12-02 20:15] LABS: Urine Culture Reflex No No
[2023-12-02 20:58] LABS: ALT (SGPT) 25 U/L (8-55); AST (SGOT) 32 U/L (5-34); Albumin 5.3 g/dL (3.5-5.0); Alkaline Phosphatase 85 U/L (40-110); Anion Gap 18 mmol/L (10-20); BUN (Urea Nitrogen) 25 mg/dL (8.4-25.7); Bilirubin, Total 3.1 mg/dL (0.2-1.2); Calc. Creatinine Clearance 0 mL/min (70-130); Carbon Dioxide 17 mmol/L (22-29); Chloride 106 mmol/L (98-107); Estimated GFR 85; Globulin 2.3 g/dL (2.4-3.5); Glucose 113 mg/dL (70-105); Potassium 5.2 mmol/L (3.5-5.1); Protein, Total 7.6 g/dL (6.0-8.3); Sodium 136 mmol/L (136-145)
[2023-12-02 21:07] LABS: Lactic Acid 1.3 mmol/L (0.5-2.2)
[2023-12-02] MEDS: Lactulose 10 GM/15 ML Oral Solution PR SCH (23:57)
[2023-12-03 00:05] VITALS: BMI 16.2
[2023-12-03] MEDS: Ondansetron PF 4 MG/2 ML Vial IVP PRN ×2 (04:13→08:30)
[2023-12-03 05:48] LABS: #Basophils 0.04 10x3/uL (0.0-0.2); %Basophils 0.5 % (0.0-1.0); %Eosinophils 3.7 % (0.0-10.0); %Lymphocytes 7.3 % (21.0-51.0); %Monocytes 8.1 % (0.0-10.0); Hematocrit 34.4 % (42.0-52.0); Hemoglobin 11.7 g/dL (14.0-18.0); Mean Corpuscular Hemoglobin 35.2 pg (27.0-31.0); Mean Corpuscular Volume 103.6 fL (78.0-98.0); Mean Platelet Volume 11.5 fL (7.4-10.4); Platelet Count 58 10x3/uL (130-400); RBC Distribution Width 14.4 % (11.5-14.5); Red Blood Cell (RBC) Count 3.32 mill/uL (4.70-6.10)
[2023-12-03 05:50] LABS: ALT (SGPT) 25 U/L (8-55); AST (SGOT) 27 U/L (5-34); Albumin 5.5 g/dL (3.5-5.0); Alkaline Phosphatase 87 U/L (40-110); Anion Gap 20 mmol/L (10-20); BUN (Urea Nitrogen) 30 mg/dL (8.4-25.7); Bilirubin, Total 4.3 mg/dL (0.2-1.2); Calc. Creatinine Clearance 46 mL/min (70-130); Calcium 10.6 mg/dL (7.8-10.44); Carbon Dioxide 16 mmol/L (22-29); Chloride 111 mmol/L (98-107); Estimated GFR 67; Globulin 2.3 g/dL (2.4-3.5); Glucose 119 mg/dL (70-105); Potassium 4.7 mmol/L (3.5-5.1); Protein, Total 7.8 g/dL (6.0-8.3); Sodium 142 mmol/L (136-145)
[2023-12-03] MEDS: Spironolactone 100 MG TAB PO SCH (08:14)
[2023-12-03] MEDS: Sodium Bicarbonate Tab 325 MG TAB PO SCH (08:14)
[2023-12-03] MEDS: Furosemide 40 MG TAB PO SCH (08:14)
[2023-12-03] MEDS: Lactulose 20 GM (30 mL) UDCUP PR SCH (08:14)
[2023-12-03] MEDS: Rifaximin 550 MG TAB PO SCH (08:15)
[2023-12-03] MEDS: Pantoprazole DR 40 MG TAB PO SCH (08:15)
[2023-12-03] MEDS ORDERED: Cetirizine HCl 10 MG TAB PO SCH (09:00)
[2023-12-03] MEDS: Loratadine 10 MG TAB PO SCH ×2 (10:11→11:07)
[2023-12-03 11:40] VITALS: BMI 16.2
[2023-12-03] MEDS: Nadolol 40 MG TAB PO SCH (21:02)
[2023-12-03] MEDS: Fluticasone Propionate Nasal Spray 16 gm Bottle NASAL SCH (21:04)
[2023-12-04 06:58] LABS: #Basophils 0.04 10x3/uL (0.0-0.2); %Basophils 0.7 % (0.0-1.0); %Eosinophils 1.1 % (0.0-10.0); %Lymphocytes 16.2 % (21.0-51.0); %Monocytes 11.8 % (0.0-10.0); Hematocrit 31.6 % (42.0-52.0); Hemoglobin 10.7 g/dL (14.0-18.0); Mean Corpuscular HGB CONC 33.9 g/dL (32.0-36.0); Mean Corpuscular Hemoglobin 34.7 pg (27.0-31.0); Mean Corpuscular Volume 102.6 fL (78.0-98.0); Mean Platelet Volume 11.7 fL (7.4-10.4); Platelet Count 48 10x3/uL (130-400); RBC Distribution Width 14.6 % (11.5-14.5); Red Blood Cell (RBC) Count 3.08 mill/uL (4.70-6.10)
[2023-12-04 07:37] LABS: ALT (SGPT) 21 U/L (8-55); AST (SGOT) 25 U/L (5-34); Albumin 4.7 g/dL (3.5-5.0); Alkaline Phosphatase 72 U/L (40-110); Anion Gap 14 mmol/L (10-20); BUN (Urea Nitrogen) 27 mg/dL (8.4-25.7); Bilirubin, Total 5.4 mg/dL (0.2-1.2); Calc. Creatinine Clearance 55 mL/min (70-130); Calcium 9.5 mg/dL (7.8-10.44); Carbon Dioxide 19 mmol/L (22-29); Chloride 105 mmol/L (98-107); Estimated GFR 84; Glucose 92 mg/dL (70-105); Potassium 4.2 mmol/L (3.5-5.1); Protein, Total 6.7 g/dL (6.0-8.3); Sodium 134 mmol/L (136-145)
[2023-12-04 11:47] VITALS: BP 105/67; TEMP 98.4
== END 2023-12-04 16:11 | disposition home or self-care (01) | DRG 443 ==
LOC: ERS 16:43 → T4-A 22:07 → OBSVTOIN 12-04 10:09
PROVIDERS: ADMIT Student in an Organized Health Care Education/Training Program; ATTEND Hospitalist
DX: K76.82 Hepatic encephalopathy (principal); K74.60 Unspecified cirrhosis of liver; D63.8 Anemia in other chronic diseases classified elsewhere; Z79.899 Other long term (current) drug therapy; Z91.041 Radiographic dye allergy status; Z88.8 Allergy status to other drugs, medicaments and biological substances; Z82.49 Family history of ischemic heart disease and other diseases of the circulatory system; Z98.890 Other specified postprocedural states; K75.81 Nonalcoholic steatohepatitis (NASH); D69.59 Other secondary thrombocytopenia
CPT/HCPCS: 36415; 51701; 80053; 80306; 80307; 81001; 82140; 83605; 83690; 84484; 85025; 93005; 96374; J0461; J2405

== ENCOUNTER 2024-03-12 03:07 | Inpatient (IN) | payer MEDICARE, MEDICAID ==
[2024-03-12 04:26] LABS: #Basophils 0.03 10x3/uL (0.0-0.2); %Basophils 0.6 % (0.0-1.0); %Lymphocytes 12.6 % (21.0-51.0); %Monocytes 8.5 % (0.0-10.0); %Neutrophils 75.7 % (42.0-75.0); Hematocrit 36.2 % (42.0-52.0); Hemoglobin 12.4 g/dL (14.0-18.0); Mean Corpuscular HGB CONC 34.3 g/dL (32.0-36.0); Mean Corpuscular Volume 102.3 fL (78.0-98.0); Platelet Count 67 10x3/uL (130-400); RBC Distribution Width 16.1 % (11.5-14.5); Red Blood Cell (RBC) Count 3.54 mill/uL (4.70-6.10)
[2024-03-12 04:33] LABS: Lipase 16 U/L (8-78)
[2024-03-12 04:35] LABS: Acetaminophen Less than 10 mcg/mL (Less than 10); Alcohol Less than 10.0 mg/dL (Less than 10); Salicylate Less than 8.0 mg/dL (Less than 8.0)
[2024-03-12 04:36] LABS: ALT (SGPT) 55 U/L (8-55); AST (SGOT) 60 U/L (5-34); Albumin 3.5 g/dL (3.5-5.0); Alkaline Phosphatase 169 U/L (40-110); Anion Gap 16 mmol/L (10-20); BUN (Urea Nitrogen) 23 mg/dL (8.4-25.7); Calc. Creatinine Clearance 0 mL/min (70-130); Calcium 9.2 mg/dL (7.8-10.44); Carbon Dioxide 22 mmol/L (22-29); Chloride 105 mmol/L (98-107); Estimated GFR 62; Globulin 3.5 g/dL (2.4-3.5); Glucose 158 mg/dL (70-105); Potassium 4.5 mmol/L (3.5-5.1); Sodium 138 mmol/L (136-145)
[2024-03-12 04:46] LABS: Troponin I Less than 0.010 ng/mL (< 0.028)
[2024-03-12] MEDS ORDERED: Lactulose 20 GM (30 mL) UDCUP ONE ×5 (05:10→19:58)
[2024-03-12 08:08] LABS: Bacteria/HPF None Seen HPF (None Seen); Bilirubin Negative (Negative); Blood, Urine Negative (Negative); CAUTI Indications for Culture Dysuria,urgency,freq; Clarity Clear (Clear); Glucose, Urine (Dipstick) Normal (Negative); Ketone, Urine Negative (Negative); Leukocyte Negative Leu/uL (Negative); Nitrite Negative (Negative); Protein, Urine (Dipstick) 10 mg/dL (Neg-Trace); RBC/HPF 0-3 HPF (0-3); Specific Gravity, Urine 1.027 (1.002-1.036); Squamous Epithelial None Seen HPF (0-3); Urobilinogen Normal mg/dL (Less than 2); WBC/HPF 0-3 HPF (0-3)
[2024-03-12 08:16] LABS: Urine Culture Reflex No No
[2024-03-12] MEDS ORDERED: hydrALAZINE 20 MG/ML VIAL SLOW IVP PRN (09:30)
[2024-03-12] MEDS ORDERED: Ondansetron ODT 4 MG TAB PO PRN (09:30)
[2024-03-12] MEDS ORDERED: Acetaminophen 650 MG Suppository PR PRN (09:30)
[2024-03-12] MEDS ORDERED: Ondansetron PF 4 MG/2 ML Vial ONE (10:17)
[2024-03-12] MEDS: Ondansetron PF 4 MG/2 ML Vial IVP PRN (10:21)
[2024-03-12] MEDS: Sodium Chloride 0.9% 1,000 ML IV SCH (12:17)
[2024-03-12] MEDS: Lactulose 20 GM (30 mL) UDCUP PO SCH (12:17)
[2024-03-12] MEDS ORDERED: Lactulose 20 GM (30 mL) UDCUP PER TUBE SCH (13:00)
[2024-03-12] MEDS ORDERED: Famotidine/PF 20 mg/2ml Vial ONE (19:58)
[2024-03-12] MEDS ORDERED: Non-Formulary Item 1 EACH (Nadolol [Nadolol] 20 MG Tablet) PO SCH (21:00)
[2024-03-12] MEDS: Rifaximin 550 MG TAB PO SCH (21:30)
[2024-03-12] MEDS: Famotidine/PF 20 mg/2ml Vial SLOW IVP SCH (21:30)
[2024-03-12] MEDS: Nadolol 40 MG TAB PO SCH (21:30)
[2024-03-12] MEDS: Spironolactone 100 MG TAB PO SCH (21:30)
[2024-03-13 01:17] VITALS: BMI 25.4
[2024-03-13 04:30] LABS: ALT (SGPT) 42 U/L (8-55); AST (SGOT) 43 U/L (5-34); Albumin 2.7 g/dL (3.5-5.0); Alkaline Phosphatase 118 U/L (40-110); Anion Gap 10 mmol/L (10-20); BUN (Urea Nitrogen) 18 mg/dL (8.4-25.7); Bilirubin, Total 1.9 mg/dL (0.2-1.2); Calc. Creatinine Clearance 63 mL/min (70-130); Carbon Dioxide 20 mmol/L (22-29); Chloride 109 mmol/L (98-107); Estimated GFR 69; Globulin 2.6 g/dL (2.4-3.5); Glucose 118 mg/dL (70-105); Protein, Total 5.3 g/dL (6.0-8.3); Sodium 135 mmol/L (136-145)
[2024-03-13 04:32] LABS: #Basophils 0.05 10x3/uL (0.0-0.2); #Eosinphils Less than 0.03 10x3/uL (0.0-0.7); %Basophils 1.3 % (0.0-1.0); %Eosinophils 0.3 % (0.0-10.0); %Lymphocytes 21.9 % (21.0-51.0); Hematocrit 28.8 % (42.0-52.0); Hemoglobin 9.4 g/dL (14.0-18.0); Mean Corpuscular HGB CONC 32.6 g/dL (32.0-36.0); Mean Corpuscular Hemoglobin 34.2 pg (27.0-31.0); Mean Corpuscular Volume 104.7 fL (78.0-98.0); Mean Platelet Volume 11.1 fL (7.4-10.4); Platelet Count 61 10x3/uL (130-400); RBC Distribution Width 16.1 % (11.5-14.5); Red Blood Cell (RBC) Count 2.75 mill/uL (4.70-6.10)
[2024-03-13] MEDS: FLU (Fluarix Triv) TS24-25(6MOS UP)/PF 45 MCG/0.5 ML Syringe IM ONE (08:49)
[2024-03-13] MEDS: Multivit, Therapeutic 1 TAB PO SCH (08:54)
[2024-03-13] MEDS: Acetaminophen 500 MG TAB PO PRN (12:40)
[2024-03-13] MEDS: Rifaximin 200 MG TAB PO SCH (22:14)
[2024-03-14 13:28] LABS: #Basophils 0.06 10x3/uL (0.0-0.2); %Basophils 1.2 % (0.0-1.0); %Eosinophils 1.2 % (0.0-10.0); %Lymphocytes 11.1 % (21.0-51.0); %Monocytes 10.9 % (0.0-10.0); Hematocrit 31.4 % (42.0-52.0); Hemoglobin 10.4 g/dL (14.0-18.0); Mean Corpuscular HGB CONC 33.1 g/dL (32.0-36.0); Mean Corpuscular Hemoglobin 34.6 pg (27.0-31.0); Mean Corpuscular Volume 104.3 fL (78.0-98.0); Mean Platelet Volume 10.7 fL (7.4-10.4); Platelet Count 58 10x3/uL (130-400); RBC Distribution Width 15.9 % (11.5-14.5); Red Blood Cell (RBC) Count 3.01 mill/uL (4.70-6.10)
[2024-03-14 13:39] LABS: ALT (SGPT) 42 U/L (8-55); AST (SGOT) 40 U/L (5-34); Albumin 2.8 g/dL (3.5-5.0); Alkaline Phosphatase 121 U/L (40-110); Anion Gap 10 mmol/L (10-20); BUN (Urea Nitrogen) 13 mg/dL (8.4-25.7); Bilirubin, Total 2.2 mg/dL (0.2-1.2); Calc. Creatinine Clearance 73 mL/min (70-130); Calcium 8.6 mg/dL (7.8-10.44); Carbon Dioxide 18 mmol/L (22-29); Chloride 109 mmol/L (98-107); Estimated GFR 82; Globulin 2.9 g/dL (2.4-3.5); Glucose 133 mg/dL (70-105); Potassium 4.4 mmol/L (3.5-5.1); Protein, Total 5.7 g/dL (6.0-8.3); Sodium 133 mmol/L (136-145)
[2024-03-14 15:05] VITALS: BP 115/65; TEMP 98.1
== END 2024-03-14 17:08 | DRG 433 ==
LOC: ERS 03:07 → ERHOLD 05:55 → T4-B 05:55 → OBSVTOIN 03-14 12:05
PROVIDERS: ADMIT Internal Medicine; ATTEND Internal Medicine
DX: K74.60 Unspecified cirrhosis of liver (principal); D61.818 Other pancytopenia; I85.10 Secondary esophageal varices without bleeding; N17.9 Acute kidney failure, unspecified; K76.82 Hepatic encephalopathy; D53.9 Nutritional anemia, unspecified; N18.30 Chronic kidney disease, stage 3 unspecified; Z98.890 Other specified postprocedural states
CPT/HCPCS: 36415; 70450; 71045; 80053; 80307; 81001; 82140; 83690; 84484; 85025; 90656; 96376; G0378; J2405; J3490; J7030

== ENCOUNTER 2024-03-20 21:38 | Inpatient (IN) | payer MEDICARE, MEDICAID ==
[2024-03-20 22:29] LABS: ALT (SGPT) 42 U/L (8-55); AST (SGOT) 41 U/L (5-34); Albumin 3.2 g/dL (3.5-5.0); Alkaline Phosphatase 130 U/L (40-110); Anion Gap 14 mmol/L (10-20); BUN (Urea Nitrogen) 16 mg/dL (8.4-25.7); Bilirubin, Total 1.6 mg/dL (0.2-1.2); Calc. Creatinine Clearance 0 mL/min (70-130); Calcium 8.9 mg/dL (7.8-10.44); Carbon Dioxide 18 mmol/L (22-29); Chloride 106 mmol/L (98-107); Estimated GFR 72; Globulin 3.6 g/dL (2.4-3.5); Glucose 190 mg/dL (70-105); Potassium 5.7 mmol/L (3.5-5.1); Protein, Total 6.8 g/dL (6.0-8.3); Sodium 132 mmol/L (136-145)
[2024-03-20 22:32] LABS: #Basophils 0.05 10x3/uL (0.0-0.2); %Basophils 0.8 % (0.0-1.0); %Eosinophils 4.7 % (0.0-10.0); %Lymphocytes 13.9 % (21.0-51.0); %Monocytes 8.5 % (0.0-10.0); %Neutrophils 71.8 % (42.0-75.0); Hematocrit 37.9 % (42.0-52.0); Hemoglobin 12.5 g/dL (14.0-18.0); Lipase 16 U/L (8-78); Magnesium 2.1 mg/dL (1.6-2.6); Mean Corpuscular Hemoglobin 34.9 pg (27.0-31.0); Mean Corpuscular Volume 105.9 fL (78.0-98.0); Mean Platelet Volume 10.8 fL (7.4-10.4); Platelet Count 73 10x3/uL (130-400); RBC Distribution Width 16.5 % (11.5-14.5); Red Blood Cell (RBC) Count 3.58 mill/uL (4.70-6.10)
[2024-03-20 22:33] LABS: Acetaminophen Less than 10 mcg/mL (Less than 10); Alcohol Less than 10.0 mg/dL (Less than 10); Salicylate Less than 8.0 mg/dL (Less than 8.0)
[2024-03-20 23:20] LABS: Bilirubin Negative (Negative); Blood, Urine Negative (Negative); CAUTI Indications for Culture Alt mental st,lethar; Clarity Clear (Clear); Glucose, Urine (Dipstick) Normal (Negative); Ketone, Urine Negative (Negative); Leukocyte Negative Leu/uL (Negative); Nitrite 2+ (Negative); Protein, Urine (Dipstick) Negative (Neg-Trace); RBC/HPF None Seen HPF (0-3); Specific Gravity, Urine 1.005 (1.002-1.036); Squamous Epithelial 0-3 HPF (0-3); Urobilinogen Normal mg/dL (Less than 2); WBC/HPF 0-3 HPF (0-3); pH, Urine 7.5 (5.0-9.0)
[2024-03-20 23:25] LABS: Amphetamine Not Detected (NotDetected); Barbiturates Screen Not Detected (NotDetected); Benzodiazepine Screen Not Detected (NotDetected); Cocaine Metabolite Screen Not Detected (NotDetected); Methadone Not Detected (NotDetected); Methamphetamine Not Detected (NotDetected); Opiate Screen Not Detected (NotDetected); Oxycodone Screen Not Detected (NotDetected); Phencyclidine (PCP) Not Detected (NotDetected); THC/Cannabinoid Screen Not Detected (NotDetected); Tricyclic Screen Not Detected (NotDetected)
[2024-03-20 23:28] LABS: Bacteria/HPF 2+ HPF (None Seen)
[2024-03-20 23:32] LABS: Urine Culture Reflex No No
[2024-03-20] MEDS ORDERED: Lactulose 20 GM (30 mL) UDCUP ONE (23:35)
[2024-03-20] MEDS ORDERED: Dextrose 10% in Water 250 ML ONE (23:49)
[2024-03-20] MEDS ORDERED: CALCIUM GLUC 1 GM/NS 50 ML IV Bag ONE (23:49)
[2024-03-20] MEDS ORDERED: Insulin Regular, Human 100 UNIT/ML 10 ML VIAL ONE (23:50)
[2024-03-21] MEDS ORDERED: Acetaminophen 650 MG Suppository PR PRN (01:19)
[2024-03-21 04:08] LABS: #Basophils 0.04 10x3/uL (0.0-0.2); %Basophils 0.8 % (0.0-1.0); %Eosinophils 5.1 % (0.0-10.0); %Lymphocytes 14.2 % (21.0-51.0); %Monocytes 11.4 % (0.0-10.0); %Neutrophils 67.6 % (42.0-75.0); Hematocrit 33.6 % (42.0-52.0); Hemoglobin 11.3 g/dL (14.0-18.0); Mean Corpuscular HGB CONC 33.6 g/dL (32.0-36.0); Mean Corpuscular Hemoglobin 34.5 pg (27.0-31.0); Mean Corpuscular Volume 102.4 fL (78.0-98.0); Mean Platelet Volume 10.5 fL (7.4-10.4); Platelet Count 67 10x3/uL (130-400); RBC Distribution Width 16.5 % (11.5-14.5); Red Blood Cell (RBC) Count 3.28 mill/uL (4.70-6.10)
[2024-03-21 04:12] LABS: ALT (SGPT) 38 U/L (8-55); AST (SGOT) 33 U/L (5-34); Alkaline Phosphatase 116 U/L (40-110); Anion Gap 13 mmol/L (10-20); BUN (Urea Nitrogen) 15 mg/dL (8.4-25.7); Bilirubin, Total 1.7 mg/dL (0.2-1.2); Calc. Creatinine Clearance 64 mL/min (70-130); Calcium 9.1 mg/dL (7.8-10.44); Carbon Dioxide 20 mmol/L (22-29); Chloride 108 mmol/L (98-107); Estimated GFR 84; Globulin 3.2 g/dL (2.4-3.5); Glucose 141 mg/dL (70-105); Potassium 3.6 mmol/L (3.5-5.1); Protein, Total 6.2 g/dL (6.0-8.3); Sodium 137 mmol/L (136-145)
[2024-03-21] MEDS: Lactulose 10 GM/15 ML Oral Solution PR SCH (05:46)
[2024-03-21] MEDS: Acetaminophen 325 MG TAB PO SCH (05:54)
[2024-03-21] MEDS: Spironolactone 100 MG TAB PO SCH (09:19)
[2024-03-21] MEDS: Furosemide 40 MG TAB PO SCH (09:19)
[2024-03-21] MEDS: Pantoprazole DR 40 MG TAB PO SCH (09:19)
[2024-03-21] MEDS: Floranex 1 GM Packet PO SCH (09:19)
[2024-03-21] MEDS: Multivit, Therapeutic 1 TAB PO SCH (09:19)
[2024-03-21] MEDS: Lactulose 20 GM (30 mL) UDCUP PO SCH (09:19)
[2024-03-21] MEDS: Rifaximin 550 MG TAB PO SCH (09:19)
[2024-03-21] MEDS: Calcium Carbonate 500 MG ChewTAB PO SCH (21:54)
[2024-03-21] MEDS: Nadolol 40 MG TAB PO SCH (21:55)
[2024-03-21] MEDS: Ondansetron ODT 4 MG TAB PO PRN (23:36)
[2024-03-22 04:37] LABS: #Basophils 0.05 10x3/uL (0.0-0.2); %Eosinophils 5.4 % (0.0-10.0); %Lymphocytes 16.3 % (21.0-51.0); %Monocytes 10.4 % (0.0-10.0); %Neutrophils 66.1 % (42.0-75.0); Hematocrit 30.9 % (42.0-52.0); Hemoglobin 10.5 g/dL (14.0-18.0); Mean Corpuscular Hemoglobin 34.8 pg (27.0-31.0); Mean Corpuscular Volume 102.3 fL (78.0-98.0); Mean Platelet Volume 9.9 fL (7.4-10.4); Platelet Count 69 10x3/uL (130-400); RBC Distribution Width 16.4 % (11.5-14.5); Red Blood Cell (RBC) Count 3.02 mill/uL (4.70-6.10)
[2024-03-22 04:49] LABS: Anion Gap 13 mmol/L (10-20); BUN (Urea Nitrogen) 17 mg/dL (8.4-25.7); Calc. Creatinine Clearance 52 mL/min (70-130); Calcium 8.6 mg/dL (7.8-10.44); Carbon Dioxide 19 mmol/L (22-29); Chloride 106 mmol/L (98-107); Estimated GFR 65; Glucose 135 mg/dL (70-105); Potassium 3.9 mmol/L (3.5-5.1); Sodium 134 mmol/L (136-145)
[2024-03-22] MEDS: Ondansetron PF 4 MG/2 ML Vial IVP PRN (19:52)
[2024-03-23 12:32] VITALS: BP 100/65; TEMP 98.5
== END 2024-03-23 16:04 | DRG 433 ==
LOC: ERS 21:38 → 2SE 03-21 00:05 → OBSVTOIN 03-22 18:01
PROVIDERS: ADMIT Student in an Organized Health Care Education/Training Program; ATTEND Student in an Organized Health Care Education/Training Program
DX: K74.60 Unspecified cirrhosis of liver (principal); E87.1 Hypo-osmolality and hyponatremia; K76.82 Hepatic encephalopathy; D69.6 Thrombocytopenia, unspecified; Z91.041 Radiographic dye allergy status; Z88.1 Allergy status to other antibiotic agents; N18.9 Chronic kidney disease, unspecified; D63.1 Anemia in chronic kidney disease; Z91.148 Patient's other noncompliance with medication regimen for other reason; E87.5 Hyperkalemia; Z79.899 Other long term (current) drug therapy
CPT/HCPCS: 36415; 36416; 70450; 71045; 80048; 80053; 80306; 80307; 81001; 82140; 83690; 83735; 83880; 84443; 85025; 87428; 93005; G0378; J0613; J1815; J2405; Q0162